=== PATIENT | female | born 1980 | race Caucasian/White ===

== ENCOUNTER 2016-03-07 | Outpatient (CLI) | payer MEDICAID | END 2016-03-07 11:00 | disposition home or self-care (01) ==

== ENCOUNTER 2016-03-07 09:41 | Outpatient (CLI) | payer MEDICAID | END 2016-03-07 09:42 | disposition home or self-care (01) | DX: Z13.9 Encounter for screening, unspecified (principal) ==

== ENCOUNTER 2016-05-21 08:38 | Emergency (ER) | payer MEDICAID ==
[2016-05-21] MEDS ORDERED: METOPROLOL 5 MG/5 ML VIAL IVP STA ×3 (08:52→10:12)
[2016-05-21] MEDS ORDERED: METOPROLOL 5 MG/5 ML VIAL IVP ONE ×3 (09:06→10:17)
[2016-05-21] MEDS ORDERED: SODIUM CHLORIDE 0.9% 500 ML IV ONE (09:11)
[2016-05-21] MEDS ORDERED: MIDAZOLAM 2 MG/2 ML VIAL IVP STA (10:44)
[2016-05-21] MEDS ORDERED: MIDAZOLAM 2 MG/2 ML VIAL ONE (10:44)
[2016-05-21] MEDS ORDERED: PROPOFOL 200 MG/20 ML VIAL IVP STA (10:45)
[2016-05-21] MEDS ORDERED: PROPOFOL 200 MG/20 ML VIAL IVP ONE (10:46)
== END 2016-05-21 12:20 | disposition home or self-care (01) ==
DX: I48.0 Paroxysmal atrial fibrillation (principal); I10 Essential (primary) hypertension

== ENCOUNTER 2016-07-21 17:34 | Emergency (ER) | payer MEDICAID ==
--- NOTE | 2016-07-21 18:07 | ED Physician Documentation ---
PD HPI CHEST PAIN - Stated complaint Stated Complaint: SOA/CP/L SHOULDER PX - Chief complaint Chief Complaint: Cardiac - History obtained from History obtained from: Patient - History of Present Illness Timing - onset: Other (36-year-old woman diagnosed with atrial fib/flutter in May, cardioverted at that time and started on beta blockers. Intermittently she has had the same sensation sense, especially if she misses a dose of metoprolol. She's had increased flutter today with some mild left shoulder pain and dizziness. It is not happening at the time of presentation to the emergency department. It has been intermittent. There is no shortness of breath. 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 - Present Medications Home Medications: Ambulatory Orders Medication Instructions Recorded Confirmed Lisinopril 10 mg PO DAILY 05/21/16 05/21/16 Metoprolol Tartrate 12.5 mg PO BID #14 tablet 05/21/16 Aspirin 07/21/16 - Allergies Allergies/Adverse Reactions: Allergies Allergy/AdvReac Type Severity Reaction Status Date / Time amoxicillin [Amoxicillin] Allergy Hives Verified 11/19/12 13:16 meperidine HCl * Allergy vomiting Verified 11/19/12 13:16 [From Demerol] Penicillins Allergy Hives Verified 11/19/12 13:16 - Social History Does the pt smoke?: No Smoking Status: Never smoker Does the pt drink ETOH?: No Does the pt have substance abuse?: No - POLST Patient has POLST: No PD ED PE NORMAL - Vitals Vital signs reviewed: Yes - General General: Alert and oriented X 3 - HEENT HEENT: Pharynx benign - Cardiac Cardiac: RRR, No murmur - Respiratory Respiratory: No respiratory distress, Clear bilaterally - Abdomen Abdomen: Soft, Non tender - Extremities Extremities: No edema, No calf tenderness / cord - Neuro Neuro: Alert and oriented X 3, Normal speech - Psych Psych: Normal mood, Normal affect Results - Vitals Vitals: Vital Signs - 24 hr 07/21/16 07/21/16 17:45 18:21 Temperature 36.6 C Heart Rate 62 63 Respiratory 14 16 Rate Blood Pressure 169/101 H 156/87 H O2 Saturation 98 97 Oxygen O2 Source Room air - EKG (time done) 1744 Rate: Rate (enter#) (64) Rhythm: NSR [place]: Normal QRS: LVH Ischemia: Normal ST segments Compare to prior EKG: Unchanged from prior EKG (after cardioversion, May) Computer interpretation: Agree with computer - Labs Labs: Laboratory Tests 07/21/16 07/21/16 18:25 18:25 Sodium 137 Potassium 3.6 Chloride 102 Carbon Dioxide 28 Anion Gap 7.0 BUN 9 Creatinine 0.7 Estimated GFR (MDRD) 94 Glucose 107 H Calcium 9.0 Magnesium 1.8 Total Bilirubin 0.6 AST 33 ALT 55 Alkaline Phosphatase 70 Total Protein 7.2 Albumin 4.3 Globulin 2.9 Albumin/Globulin Ratio 1.5 Lipase 30 Serum HCG, Qual NEGATIVE PD MEDICAL DECISION MAKING - ED course ED course: She is in normal sinus rhythm now but is likely having intermittent atrial fibrillation flutter. We'll watch her on the monitor for a while. She has an appointment with the development analyst in 3 days. Her thyroid was checked earlier this year normal. She was observed in the emergency department and had no further symptoms or arrhythmias. Her magnesium and potassium were low normal and both were orally supplemented. Departure - Departure Disposition: Home, Self Care Clinical Impression: Palpitations Condition: Good Record reviewed to determine appropriate education?: Yes Instructions: Atrial Fibrillation Dc Comments: Followup with the development analyst on Friday as previously arranged return if worse. Your blood pressure was elevated today on check in to the emergency department. This does not mean that you have hypertension, it is a common phenomenon to check into the emergency department and have elevated blood pressure. I recommend that you see your primary care physician within the week to have it rechecked when you're feeling better.
[2016-07-21 18:42] LABS: ALBUMIN/GLOBULIN RATIO 1.5 (1.0-2.2); BILIRUBIN,TOTAL 0.6 mg/dL (0.2-1.0); CREATININE 0.7 mg/dL (0.4-1.0); MAGNESIUM 1.8 mg/dL (1.7-2.8); POTASSIUM 3.6 mmol/L (3.5-5.0); TOTAL PROTEIN 7.2 g/dL (6.7-8.2)
[2016-07-21] MEDS ORDERED: MAGNESIUM OXIDE 400 MG TABLET PO STA (18:48)
[2016-07-21] MEDS ORDERED: POTASSIUM BICARB 25 MEQ TABLET PO STA (18:48)
[2016-07-21] MEDS ORDERED: MAGNESIUM OXIDE 400 MG TABLET PO ONE (18:53)
[2016-07-21] MEDS ORDERED: POTASSIUM BICARB 25 MEQ TABLET PO ONE (18:53)
[2016-07-21 19:09] VITALS: BP 167/91
== END 2016-07-21 19:05 | disposition home or self-care (01) ==
LOC: ED 17:34
DX: R00.2 Palpitations (principal); E83.42 Hypomagnesemia; E87.6 Hypokalemia; I10 Essential (primary) hypertension
CPT/HCPCS: 36415; 80053; 83690; 83735; 84703; 93005; 93010; 99283; 99284; A9270

== ENCOUNTER 2016-07-29 08:57 | Outpatient (CLI) | payer MEDICAID ==
[2016-07-29 13:36] LABS: BUN - BLOOD UREA NITROGEN 12 mg/dL (6-20); CALCIUM 8.8 mg/dL (8.5-10.3); CARBON DIOXIDE - CO2 25 mmol/L (21-32); CHLORIDE 105 mmol/L (101-111); CHOL/HDL RATIO 5.4 (<4.4); CHOLESTEROL 168 mg/dL; CREATININE 0.8 mg/dL (0.4-1.0); GFR - MDRD 81 (>89); GLUCOSE 115 mg/dL (70-100); HDL CHOLESTEROL 31 mg/dL; LDL/HDL RATIO 3.3 (<4.4); MAGNESIUM 1.9 mg/dL (1.7-2.8); POTASSIUM 4.1 mmol/L (3.5-5.0); SODIUM 139 mmol/L (135-145); TRIGLYCERIDES 173 mg/dL; VLDL CHOLESTEROL 35 mg/dL
[2016-08-03 09:28] LABS: ALDO/PRA RATIO 6.1 Ratio (0.9-28.9)
== END 2016-07-29 08:58 | disposition home or self-care (01) ==
LOC: LAB.N 08:57
PROVIDERS: ATTEND Internal Medicine Cardiovascular Disease
DX: I10 Essential (primary) hypertension (principal); R06.02 Shortness of breath; R06.83 Snoring; G47.33 Obstructive sleep apnea (adult) (pediatric)
CPT/HCPCS: 36415; 80048; 80061; 82088; 83735; 83835; 84244; 84443

== ENCOUNTER 2016-08-19 17:20 | Outpatient (CLI) | payer MEDICAID | END 2016-08-19 17:21 | disposition home or self-care (01) | LOC: LAB.R 17:20 | PROVIDERS: ATTEND Podiatrist | DX: L03.032 Cellulitis of left toe (principal) | CPT/HCPCS: 87070; 87077; 87205 ==

== ENCOUNTER 2016-08-28 13:56 | Outpatient (CLI) | payer MEDICAID | END 2016-08-28 13:57 | disposition home or self-care (01) | LOC: SC 13:56 | PROVIDERS: ATTEND Nurse Practitioner Family | DX: G47.10 Hypersomnia, unspecified (principal); G47.8 Other sleep disorders; R06.83 Snoring; R53.83 Other fatigue | CPT/HCPCS: 99212; 99214 ==

== ENCOUNTER 2016-09-02 07:34 | Outpatient (CLI) | payer MEDICAID | END 2016-09-02 07:35 | disposition home or self-care (01) | LOC: LAB.N 07:34 | PROVIDERS: ATTEND Nurse Practitioner Gerontology | DX: Z79.01 Long term (current) use of anticoagulants (principal) | CPT/HCPCS: 85610 ==

== ENCOUNTER 2016-09-04 07:52 | Outpatient (CLI) | payer MEDICAID | END 2016-09-04 07:53 | disposition home or self-care (01) | LOC: LAB.N 07:52 | PROVIDERS: ATTEND Nurse Practitioner Gerontology | DX: Z79.01 Long term (current) use of anticoagulants (principal) | CPT/HCPCS: 85610 ==

== ENCOUNTER 2016-09-06 08:00 | Outpatient (CLI) | payer MEDICAID | END 2016-09-06 08:01 | disposition home or self-care (01) | LOC: LAB.N 08:00 | PROVIDERS: ATTEND Nurse Practitioner Gerontology | DX: Z79.01 Long term (current) use of anticoagulants (principal) | CPT/HCPCS: 85610 ==

== ENCOUNTER 2016-09-10 08:00 | Outpatient (CLI) | payer MEDICAID | END 2016-09-10 08:01 | disposition home or self-care (01) | LOC: LAB.N 08:00 | PROVIDERS: ATTEND Nurse Practitioner Gerontology | DX: Z79.01 Long term (current) use of anticoagulants (principal) | CPT/HCPCS: 85610 ==

== ENCOUNTER 2016-09-12 14:22 | Outpatient (CLI) | payer MEDICAID | END 2016-09-12 14:23 | disposition home or self-care (01) | LOC: LAB.N 14:22 | PROVIDERS: ATTEND Nurse Practitioner Gerontology | DX: Z79.01 Long term (current) use of anticoagulants (principal) | CPT/HCPCS: 85610 ==

== ENCOUNTER 2016-09-16 10:10 | Outpatient (CLI) | payer MEDICAID | END 2016-09-16 10:11 | disposition home or self-care (01) | LOC: LAB.N 10:10 | PROVIDERS: ATTEND Nurse Practitioner Gerontology | DX: Z79.01 Long term (current) use of anticoagulants (principal) | CPT/HCPCS: 85610 ==

== ENCOUNTER 2016-09-23 08:00 | Outpatient (CLI) | payer MEDICAID | END 2016-09-23 08:01 | disposition home or self-care (01) | LOC: LAB.N 08:00 | PROVIDERS: ATTEND Nurse Practitioner Gerontology | DX: Z79.01 Long term (current) use of anticoagulants (principal) | CPT/HCPCS: 85610 ==

== ENCOUNTER 2016-09-27 21:26 | Outpatient (CLI) | payer MEDICAID | END 2016-09-27 21:27 | disposition home or self-care (01) | LOC: SC 21:26 | PROVIDERS: ATTEND Internal Medicine Pulmonary Disease | DX: G47.33 Obstructive sleep apnea (adult) (pediatric) (principal) | CPT/HCPCS: 95810 ==

== ENCOUNTER 2016-10-01 09:19 | Outpatient (CLI) | payer MEDICAID | END 2016-10-01 09:20 | disposition home or self-care (01) | LOC: LAB.N 09:19 | PROVIDERS: ATTEND Nurse Practitioner Gerontology | DX: Z79.01 Long term (current) use of anticoagulants (principal) | CPT/HCPCS: 85610 ==

== ENCOUNTER 2016-10-08 08:00 | Outpatient (CLI) | payer MEDICAID | END 2016-10-08 08:01 | disposition home or self-care (01) | LOC: LAB.N 08:00 | PROVIDERS: ATTEND Nurse Practitioner Gerontology | DX: Z79.01 Long term (current) use of anticoagulants (principal) | CPT/HCPCS: 85610 ==

== ENCOUNTER 2016-10-22 07:44 | Outpatient (CLI) | payer MEDICAID | END 2016-10-22 07:45 | disposition home or self-care (01) | LOC: LAB.N 07:44 | PROVIDERS: ATTEND Nurse Practitioner Gerontology | DX: Z79.01 Long term (current) use of anticoagulants (principal) | CPT/HCPCS: 85610 ==

== ENCOUNTER 2016-10-23 08:42 | Outpatient (CLI) | payer MEDICAID | END 2016-10-23 08:43 | disposition home or self-care (01) | LOC: SC 08:42 | PROVIDERS: ATTEND Nurse Practitioner Family | DX: G47.33 Obstructive sleep apnea (adult) (pediatric) (principal) | CPT/HCPCS: 99212; 99214 ==

== ENCOUNTER 2016-11-05 08:00 | Outpatient (CLI) | payer MEDICAID | END 2016-11-05 08:01 | disposition home or self-care (01) | LOC: LAB.N 08:00 | PROVIDERS: ATTEND Nurse Practitioner Gerontology | DX: Z79.01 Long term (current) use of anticoagulants (principal) | CPT/HCPCS: 85610 ==

== ENCOUNTER 2016-12-02 13:09 | Outpatient (CLI) | payer MEDICAID | END 2016-12-02 13:10 | disposition home or self-care (01) | LOC: LAB.N 13:09 | PROVIDERS: ATTEND Nurse Practitioner Gerontology | DX: Z79.01 Long term (current) use of anticoagulants (principal) | CPT/HCPCS: 85610 ==

== ENCOUNTER 2016-12-02 13:14 | Outpatient (CLI) | payer MEDICAID | END 2016-12-02 13:15 | disposition home or self-care (01) | LOC: SC 13:14 | PROVIDERS: ATTEND Nurse Practitioner Family | DX: G47.33 Obstructive sleep apnea (adult) (pediatric) (principal) | CPT/HCPCS: 99212; 99214 ==

== ENCOUNTER 2017-01-03 08:00 | Outpatient (CLI) | payer MEDICAID | END 2017-01-03 08:01 | disposition home or self-care (01) | LOC: LAB.N 08:00 | PROVIDERS: ATTEND Nurse Practitioner Gerontology | DX: Z79.01 Long term (current) use of anticoagulants (principal) | CPT/HCPCS: 85610 ==

== ENCOUNTER 2017-02-07 14:49 | Outpatient (CLI) | payer MEDICAID | END 2017-02-07 14:50 | disposition home or self-care (01) | LOC: LAB.N 14:49 | PROVIDERS: ATTEND Nurse Practitioner Gerontology | DX: Z79.01 Long term (current) use of anticoagulants (principal) | CPT/HCPCS: 85610 ==

== ENCOUNTER 2017-03-05 14:57 | Outpatient (CLI) | payer MEDICAID | END 2017-03-05 14:58 | disposition home or self-care (01) | LOC: SC 14:57 | PROVIDERS: ATTEND Nurse Practitioner Family | DX: G47.33 Obstructive sleep apnea (adult) (pediatric) (principal); G47.00 Insomnia, unspecified | CPT/HCPCS: 99212; 99214 ==

== ENCOUNTER 2017-03-05 21:00 | Outpatient (CLI) | payer MEDICAID ==
--- NOTE | 2017-03-06 09:18 | XRAY Report ---
DATE OF SERVICE: 03/05/2017 THREE-VIEW LEFT INDEX FINGER: 03/05/2017 CLINICAL INDICATION: Pain. FINDINGS: AP, lateral, and oblique views of the left index finger demonstrate no evidence of acute fracture. Soft tissue swelling is present. No radiopaque foreign body is seen in the soft tissues. IMPRESSION: Soft tissue swelling, but no evidence of acute fracture. TD: 03/06/2017 10:17
== END 2017-03-05 21:01 | disposition home or self-care (01) ==
LOC: DI 21:00
PROVIDERS: ATTEND Family Medicine
DX: M79.645 Pain in left finger(s) (principal); R22.32 Localized swelling, mass and lump, left upper limb
CPT/HCPCS: 73140

== ENCOUNTER 2017-03-14 09:06 | Emergency (ER) | payer MEDICAID ==
[2017-03-14] MEDS ORDERED: ONDANSETRON 4 MG/2 ML VIAL IVP STA (10:24)
[2017-03-14] MEDS ORDERED: KETOROLAC 60 MG/2 ML VIAL IVP STA (10:24)
[2017-03-14] MEDS ORDERED: KETOROLAC 60 MG/2 ML VIAL IM STA (10:52)
[2017-03-14 11:00] LABS: BILIRUBIN,URINE NEGATIVE (NEGATIVE); GLUCOSE, URINE (UA) NEGATIVE (NEGATIVE); KETONES,URINE (UA) NEGATIVE (NEGATIVE); LEUKOCYTE ESTERASE, URINE NEGATIVE (NEGATIVE); NITRITE,URINE NEGATIVE (NEGATIVE); OCCULT BLOOD,URINE MODERATE (NEGATIVE); PROTEIN,URINE NEGATIVE (NEGATIVE); UROBILINOGEN,URINE 0.2 (NORMAL) E.U./dL (NORMAL)
[2017-03-14 11:03] LABS: CLARITY,URINE CLEAR (CLEAR)
[2017-03-14 11:21] LABS: RBC,URINE 0-5 /HPF (0-5)
[2017-03-14 11:22] LABS: BACTERIA,URINE Moderate /HPF (None Seen); MUCUS,URINE Moderate Strands; SQUAMOUS EPITHELIAL CELL,UR MOD Squamous (<= Few); YEAST,URINE PRESENT
--- NOTE | 2017-03-14 12:35 | Ultrasound Report ---
DATE OF SERVICE: 03/14/2017 PELVIC ULTRASOUND: 03/14/2017 CLINICAL INDICATION: Left pelvic pain. TECHNIQUE: Transabdominal pelvic ultrasound performed for global evaluation. Transvaginal pelvic ultrasound performed for detailed evaluation. Real-time scanning performed and static images obtained. FINDINGS: The uterus is anteverted, measuring 10.3 x 5.5 x 5.0 cm. The endometrial echo complex measures 13 mm. No focal myometrial lesion is seen. The right ovary is surgically absent. Trace free fluid is present. The left ovary measures 5.7 x 4.4 x 3.4 cm, and demonstrates a 4.3 x 3.4 x 2.2 cm cyst. Normal flow was seen to the surrounding ovarian parenchyma. IMPRESSION: A 4.3 CM LEFT OVARIAN CYST. NO EVIDENCE OF OVARIAN TORSION AT THIS TIME. POSTOPERATIVE CHANGES OF PREVIOUS RIGHT OOPHORECTOMY. TD: 03/14/2017 13:35
[2017-03-14 12:43] LABS: BASOPHILS # (AUTO) 0.1 10^3/uL (0.0-0.1); BASOPHILS % (AUTO) 0.6 %; EOSINOPHILS # (AUTO) 0.1 10^3/uL (0.0-0.7); EOSINOPHILS % (AUTO) 1.6 %; LYMPHOCYTES # (AUTO) 2.5 10^3/uL (1.5-3.5); LYMPHOCYTES % (AUTO) 30.3 %; MEAN CORPUSCULAR HEMOGLOBIN 28.1 pg (27.0-31.0); MEAN CORPUSCULAR HGB CONC 34.5 g/dL (32.0-36.0); MEAN CORPUSCULAR VOLUME 81.5 fL (81.0-99.0); MONOCYTES # (AUTO) 0.5 10^3/uL (0.0-1.0); MONOCYTES % (AUTO) 5.5 %; NEUTROPHILS # (AUTO) 5.1 10^3/uL (1.5-6.6); PLT - PLATELET COUNT 221 10^3/uL (130-450); RED BLOOD COUNT 4.97 10^6/uL (4.20-5.40); RED CELL DISTRIBUTION WIDTH 13.3 % (12.0-15.0); WHITE BLOOD COUNT 8.2 x10^3/uL (4.8-10.8)
--- NOTE | 2017-03-14 12:50 | ED Physician Documentation ---
PD HPI ABD PAIN - Stated complaint Stated Complaint: ABD PAIN - Chief complaint Chief Complaint: Abd Pain - History obtained from History obtained from: Patient - History of Present Illness Timing - onset: How many days ago (3) Timing - duration: Days (3) Timing - details: Still present Quality: Sharp Location: LLQ Worsened by: Moving (walking), Palpation Associated symptoms: Nausea (mild). No: Fever, Vomiting, Dysuria Similar symptoms before: Diagnosis (History of polycystic ovarian syndrome.) - Additional information Additional information: The patient is a 36-year-old female who presents with left lower quadrant/ pelvic pain that started 3 days ago and has persisted since that time, becoming worse today. She describes it as a sharp pain that is worse with walking. She has a history of polycystic ovarian syndrome, with similar symptoms in the past. The last time it was this bad was about 5 years ago. She is status post right oophorectomy. On further review of systems she denies fever, vomiting, or dysuria. Her last menstrual period was in July 2016. She took a home test which was negative. Review of Systems Constitutional: denies: Fever Nose: denies: Congestion Throat: denies: Sore throat Cardiac: denies: Chest pain / pressure Respiratory: denies: Dyspnea, Cough GI: reports: Abdominal Pain, Nausea (Mild). denies: Vomiting, Diarrhea : reports: LMP (July 2016.). 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 - Present Medications Home Medications: Ambulatory Orders Medication Instructions Recorded Confirmed Metoprolol Tartrate 12.5 mg PO BID #14 tablet 05/21/16 Fluconazole [Diflucan] 150 mg PO ONCE #1 tablet 03/14/17 HYDROcod/ACETAM 5/325 [Vicodin 1 - 2 ea PO Q6H PRN #15 tablet 03/14/17 5/325] Warfarin Sodium [Coumadin] 7.5 03/14/17 - Allergies Allergies/Adverse Reactions: Allergies Allergy/AdvReac Type Severity Reaction Status Date / Time amoxicillin [Amoxicillin] Allergy Hives Verified 03/14/17 09:21 meperidine HCl * Allergy vomiting Verified 03/14/17 09:21 [From Demerol] Penicillins Allergy Hives Verified 03/14/17 09:21 - Social History Does the pt smoke?: No Smoking Status: Never smoker Does the pt drink ETOH?: No Does the pt have substance abuse?: No - Immunizations Immunizations are current?: Yes - POLST Patient has POLST: No PD ED PE NORMAL - Vitals Vital signs reviewed: Yes (Hypertension.) - General General: Alert and oriented X 3, Well developed/nourished, Other (Obese.) - HEENT HEENT: Atraumatic, Pharynx benign - Neck Neck: No adenopathy, No JVD - Cardiac Cardiac: RRR, No murmur - Respiratory Respiratory: No respiratory distress, Clear bilaterally - Abdomen Abdomen: Soft, Other (Tenderness to palpation in the left lower quadrant/ adnexal region, without rebound or guarding.) - Back Back: No CVA TTP - Derm Derm: No rash - Extremities Extremities: No edema, No calf tenderness / cord - Neuro Neuro: Alert and oriented X 3, No motor deficit, Normal speech Results - Vitals Vitals: Vital Signs - 24 hr 03/14/17 13:12 Temperature 36.6 C Heart Rate 60 Respiratory 15 Rate Blood Pressure 154/91 H O2 Saturation 99 Oxygen O2 Source Room air - Labs Labs: Laboratory Tests 03/14/17 03/14/17 03/14/17 09:45 12:30 12:30 WBC 8.2 RBC 4.97 Hgb 14.0 Hct 40.5 MCV 81.5 MCH 28.1 MCHC 34.5 RDW 13.3 Plt Count 221 MPV 8.0 Neut # 5.1 Lymph # 2.5 [place] # 0.5 Eos # 0.1 Baso # 0.1 Absolute Nucleated RBC 0.01 Nucleated RBC % 0.1 Sodium 135 Potassium 3.9 Chloride 101 Carbon Dioxide 25 Anion Gap 9.0 BUN 9 Creatinine 0.7 Estimated GFR (MDRD) 94 Glucose 100 Calcium 8.6 Total Bilirubin 1.0 AST 28 ALT 40 Alkaline Phosphatase 75 Total Protein 7.2 Albumin 4.0 Globulin 3.2 Albumin/Globulin Ratio 1.3 Lipase 24 Urine Color DARK YELLOW Urine Clarity CLEAR Urine pH 6.0 Ur Specific [place] >=1.030 H Urine Protein NEGATIVE Urine Glucose (UA) NEGATIVE Urine Ketones NEGATIVE Urine Occult Blood MODERATE H Urine Nitrite NEGATIVE Urine Bilirubin NEGATIVE Urine Urobilinogen 0.2 (NORMAL) Ur Leukocyte Esterase NEGATIVE Urine RBC 0-5 Urine WBC 0-3 Ur Squamous Epith Cells MOD Squamous H Urine Bacteria Moderate H Urine Mucus Moderate Strands Urine Yeast PRESENT Ur Microscopic Review INDICATED Urine Culture Comments NOT INDICATED - Rads (name of study) pelvic u/s Radiology: Prelim report reviewed, EMP read contemporaneously, See rad report ( 4.3 cm left ovarian cyst. No torsion. Normal uterus. Trace free fluid.) PD MEDICAL DECISION MAKING - ED course Complexity details: reviewed old records, reviewed results, re-evaluated patient , considered differential, d/w patient, d/w family ED course: The patient's presentation is consistent with left ovarian cyst, which is confirmed by pelvic ultrasound. Clinically her symptoms do not represent diverticulitis, pyelonephritis, or ovarian torsion. test is negative , and CBC and chemistry panel are normal. Urinalysis reveals yeast forms. Treatment in the emergency department included administration of ketorolac 60 mg IM. The patient's symptoms improved, although did not resolve. She is being discharged with prescriptions for Diflucan and for Vicodin, 15 tablets. I discussed with her and her female portrait photographer the results of her workup, symptomatic treatment and outpatient follow-up, as well as potentially worrisome signs or symptoms that should prompt reevaluation is needed emergency department. Departure - Departure Disposition: 01 Home, Self Care Clinical Impression: Left ovarian cyst Condition: Stable Instructions: ED Cyst Ovarian Follow-Up: Ingrid Torres ARNP [Primary Care Provider] - Prescriptions: Fluconazole [Diflucan] 150 mg PO ONCE #1 tablet HYDROcod/ACETAM 5/325 [Vicodin 5/325] 1 - 2 ea PO Q6H PRN #15 tablet PRN Reason: Pain Comments: Continue using ibuprofen, up to 800 mg 3 times daily, for its anti-inflammatory effect. You can use Vicodin as prescribed if needed for pain. Follow up with your primary physician within 2 weeks. Call to schedule appointment. Return to the emergency department if you develop increasing abdominal pain, fever, persistent vomiting, or otherwise worsening symptoms. Discharge Date/Time: 03/14/17 13:12
[2017-03-14 12:55] LABS: ALBUMIN/GLOBULIN RATIO 1.3 (1.0-2.2); CALCIUM 8.6 mg/dL (8.5-10.3); CREATININE 0.7 mg/dL (0.4-1.0); TOTAL PROTEIN 7.2 g/dL (6.7-8.2)
[2017-03-14 13:15] VITALS: BP 154/91
== END 2017-03-14 13:12 | disposition home or self-care (01) ==
LOC: ED 09:06
DX: N83.202 Unspecified ovarian cyst, left side (principal); E28.2 Polycystic ovarian syndrome; I10 Essential (primary) hypertension
CPT/HCPCS: 36415; 76830; 76856; 80053; 81001; 81003; 83690; 85025; 87086; 96372; 99283

== ENCOUNTER 2017-03-19 08:57 | Outpatient (CLI) | payer MEDICAID | END 2017-03-19 08:58 | disposition home or self-care (01) | LOC: LAB.N 08:57 | PROVIDERS: ATTEND Nurse Practitioner Gerontology | DX: Z79.01 Long term (current) use of anticoagulants (principal) | CPT/HCPCS: 85610 ==

== ENCOUNTER 2017-03-24 18:39 | Emergency (ER) | payer MEDICAID ==
--- NOTE | 2017-03-24 19:27 | XRAY Report ---
EXAM: RIGHT FOOT RADIOGRAPHY EXAM DATE: 03/24/2017 07:11 PM. CLINICAL HISTORY: Injury . COMPARISON: None. TECHNIQUE: 3 views. FINDINGS: Bones: Normal. No fractures or bone lesions. Joints: Normal. No subluxations. Soft Tissues: Normal. No soft tissue swelling. IMPRESSION: Normal foot radiography. [facility] Referring Provider Line: [phone] SITE ID: [id number]
[2017-03-24 19:45] VITALS: BP 140/94
--- NOTE | 2017-03-24 21:05 | ED Physician Documentation ---
PD HPI LOWER EXT INJURY - Stated complaint Stated Complaint: RT FOOT INJURY - Chief complaint Chief Complaint: Ext Problem - History obtained from History obtained from: Patient - History of Present Illness PD HPI LOW EXT INJURY LOCATION: Right, Foot Type of injury: Blunt / blow Where injury occurred: Other Timing - onset: How many weeks ago (1) Timing - details: Abrupt onset Improved by: Immobilization Worsened by: Moving Associated symptoms: Swelling, Discolored Contributing factors: Anticoagulated Similar symptoms before: No diagnosis Recently seen: Not recently seen - Additional information Additional information: patient is a 36 year old female on coumadin for a fib who is presenting to the emergency department for swollen foot. patient states that she hit it on a shopping cart about a week ago but it is still swollen. patient states that she works on her feet all day and has not been able to elevate or ice her foot. Review of Systems Constitutional: denies: Fever, Chills Eyes: reports: Reviewed and negative Ears: reports: Reviewed and negative Nose: reports: Reviewed and negative Throat: reports: Reviewed and negative Cardiac: denies: Chest pain / pressure Respiratory: reports: Reviewed and negative GI: denies: Nausea, Vomiting : reports: Reviewed and negative Skin: reports: Rash. 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 Psych: None Musculoskeletal: None Derm: None Other Past Medical History: PCOS - Past Surgical History Past Surgical History: Yes General: Cholecystectomy, 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 - Present Medications Home Medications: Ambulatory Orders Medication Instructions Recorded Confirmed Warfarin Sodium [Coumadin] 7.5 03/14/17 Metoprolol Tartrate 25 mg PO BID 03/24/17 03/24/17 - Allergies Allergies/Adverse Reactions: Allergies Allergy/AdvReac Type Severity Reaction Status Date / Time amoxicillin [Amoxicillin] Allergy Hives Verified 03/14/17 09:21 meperidine HCl * Allergy vomiting Verified 03/14/17 09:21 [From Demerol] Penicillins Allergy Hives Verified 03/24/17 18:51 - Social History Does the pt smoke?: No Smoking Status: Never smoker Does the pt drink ETOH?: No Does the pt have substance abuse?: No - Immunizations Immunizations are current?: Yes - POLST Patient has POLST: No PD ED PE NORMAL - Vitals Vital signs reviewed: Yes - General General: Alert and oriented X 3, No acute distress - HEENT HEENT: Atraumatic, PERRL - Respiratory Respiratory: No respiratory distress - Abdomen Abdomen: Soft - Neuro Neuro: Alert and oriented X 3, No motor deficit, No sensory deficit, Normal speech Eye Opening: Spontaneous Motor: Obeys Commands Verbal: Oriented GCS Score: 15 PD ED PE EXPANDED - Extremities Extremities: Right foot (tenderness and swelling of right foot), Pedal Pulses Present, Motor intact, Sensory intact, Vascular intact, Tendon intact Results - Vitals Vitals: Vital Signs - 24 hr 03/24/17 03/24/17 18:49 19:45 Temperature 36.4 C L 37.0 C Heart Rate 67 68 Respiratory 20 18 Rate Blood Pressure 160/93 H 140/94 H O2 Saturation 99 97 Oxygen O2 Source Room air - Rads (name of study) right foot x-ray Radiology: Final report received (no acute abnormality) PD MEDICAL DECISION MAKING - ED course Complexity details: reviewed old records, reviewed results, re-evaluated patient , considered differential, d/w patient, d/w family ED course: Patient was seen and examined at bedside. Patient had been sent for imaging and was negative. Patient was made aware of the findings. Patient was placed in an yang bandage by me. Patient required no further work up and was stable for discharge with outpatient follow up. Departure - Departure Disposition: 01 Home, Self Care Clinical Impression: Contusion of foot, right Instructions: ED Contusion Lower Ext Follow-Up: Ingrid Torres ARNP [Primary Care Provider] - As Needed Comments: Your diagnostics today were within normal limits. there is no acute fracture or dislocation. It is important that you keep your foot elevated throughout the day, and at night you should put it up on extra pillows. If you are unable to elevate your foot during the day you should wear yang bandage or compression stocking. You can take tylenol as needed for pain.
== END 2017-03-24 21:21 | disposition home or self-care (01) ==
LOC: ED 18:39
DX: S90.31XA Contusion of right foot, initial encounter (principal); W22.8XXA Striking against or struck by other objects, initial encounter; Y92.59 Other trade areas as the place of occurrence of the external cause; I10 Essential (primary) hypertension; I48.91 Unspecified atrial fibrillation; Z79.01 Long term (current) use of anticoagulants; E28.2 Polycystic ovarian syndrome
CPT/HCPCS: 99282; 99283

== ENCOUNTER 2017-04-10 14:00 | Outpatient (CLI) | payer MEDICAID | END 2017-04-10 14:01 | disposition home or self-care (01) | LOC: LAB.N 14:00 | PROVIDERS: ATTEND Nurse Practitioner Gerontology | DX: Z79.01 Long term (current) use of anticoagulants (principal) | CPT/HCPCS: 85610 ==

== ENCOUNTER 2017-04-25 08:00 | Outpatient (CLI) | payer MEDICAID | END 2017-04-25 08:01 | disposition home or self-care (01) | LOC: LAB.N 08:00 | PROVIDERS: ATTEND Nurse Practitioner Gerontology | DX: Z79.01 Long term (current) use of anticoagulants (principal) | CPT/HCPCS: 85610 ==

== ENCOUNTER 2017-05-08 15:37 | Outpatient (CLI) | payer MEDICAID | END 2017-05-08 15:38 | disposition home or self-care (01) | LOC: LAB.N 15:37 | PROVIDERS: ATTEND Nurse Practitioner Gerontology | DX: Z79.01 Long term (current) use of anticoagulants (principal) | CPT/HCPCS: 85610 ==

== ENCOUNTER 2017-06-09 10:45 | Outpatient (CLI) | payer MEDICAID ==
[2017-06-09 13:36] LABS: HB2 TOTAL 13.4 g/dL; HEMOGLOBIN A1C 0.53 g/dL; HEMOGLOBIN A1C % 5.8 % (4.6-6.2)
== END 2017-06-09 10:46 | disposition home or self-care (01) ==
LOC: LAB.N 10:45
PROVIDERS: ATTEND Nurse Practitioner Gerontology
DX: I10 Essential (primary) hypertension (principal); E66.01 Morbid (severe) obesity due to excess calories; E28.2 Polycystic ovarian syndrome; Z79.01 Long term (current) use of anticoagulants
CPT/HCPCS: 36415; 83036; 85610

== ENCOUNTER 2017-06-22 19:01 | Emergency (ER) | payer MEDICAID ==
[2017-06-22] MEDS ORDERED: oxyCOD/ACETAMIN 5 MG/325 MG TABLET PO STA (20:35)
[2017-06-22] MEDS ORDERED: KETOROLAC 60 MG/2 ML VIAL IM STA (20:36)
[2017-06-22 20:42] LABS: BILIRUBIN,URINE NEGATIVE (NEGATIVE); CLARITY,URINE CLEAR (CLEAR); GLUCOSE, URINE (UA) NEGATIVE (NEGATIVE); KETONES,URINE (UA) NEGATIVE (NEGATIVE); LEUKOCYTE ESTERASE, URINE NEGATIVE (NEGATIVE); NITRITE,URINE NEGATIVE (NEGATIVE); OCCULT BLOOD,URINE SMALL (NEGATIVE); PROTEIN,URINE NEGATIVE (NEGATIVE); UROBILINOGEN,URINE 0.2 (NORMAL) E.U./dL (NORMAL)
[2017-06-22 20:43] LABS: HCG UR QUAL NEGATIVE
[2017-06-22 20:53] LABS: AMORPHOUS SEDIMENT,UR Few /LPF; BACTERIA,URINE Moderate /HPF (None Seen); RBC,URINE 0-5 /HPF (0-5); SQUAMOUS EPITHELIAL CELL,UR MOD Squamous (<= Few)
--- NOTE | 2017-06-22 21:19 | ED Physician Documentation ---
PD HPI ABD PAIN - Stated complaint Stated Complaint: LOWER ABD PX - Chief complaint Chief Complaint: Abd Pain - History obtained from History obtained from: Patient - History of Present Illness Timing - onset: How many weeks ago (1) Timing - details: Gradual onset Quality: Sharp Location: LLQ Worsened by: Moving Associated symptoms: Nausea. No: Fever, Vomiting, Dysuria Similar symptoms before: Diagnosis (History of similar symptoms with ovarian cysts.) - Treatment prior to arrival Treatment prior to arrival: She has taken Tylenol without relief. - Additional information Additional information: The patient is a 37-year-old female with history of polycystic ovarian syndrome , who presents with left lower quadrant/adnexal pain that started about 1 week ago, but became worse today. It feels similar to when she has had ovarian cysts in the past. Review of her medical record reveals similar presentation 5 months ago, and pelvic ultrasound revealed a left ovarian cyst at that time. She reports nausea, without vomiting. She denies fever or dysuria. Her last normal menstrual period was 7 weeks ago. Further past medical history is significant for atrial fibrillation, for which she is on Coumadin. Review of Systems Constitutional: denies: Fever Nose: denies: Congestion Cardiac: denies: Chest pain / pressure Respiratory: denies: Dyspnea, Cough GI: reports: Abdominal Pain, Nausea. denies: Vomiting, Diarrhea : reports: LMP (7 weeks ago.). 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 - Present Medications Home Medications: Ambulatory Orders Medication Instructions Recorded Confirmed Warfarin Sodium [Coumadin] 7.5 03/14/17 Metoprolol Tartrate 25 mg PO BID 03/24/17 03/24/17 HYDROcod/ACETAM 5/325 [[place] 5/325] 1 - 2 ea PO Q6H PRN #15 tablet 06/22/17 - Allergies Allergies/Adverse Reactions: Allergies Allergy/AdvReac Type Severity Reaction Status Date / Time amoxicillin [Amoxicillin] Allergy Hives Verified 01/26/18 09:21 meperidine HCl * Allergy vomiting Verified 03/14/17 09:21 [From Demerol] Penicillins Allergy Hives Verified 03/24/17 18:51 - Social History Does the pt smoke?: No Smoking Status: Never smoker Does the pt drink ETOH?: No Does the pt have substance abuse?: No - Immunizations Immunizations are current?: Yes - POLST Patient has POLST: No PD ED PE NORMAL - Vitals Vital signs reviewed: Yes (hypertensive) - General General: Alert and oriented X 3, Other (Obese) - HEENT HEENT: Atraumatic, Moist mucous membranes - Neck Neck: No adenopathy, No JVD - Cardiac Cardiac: RRR, No murmur - Respiratory Respiratory: No respiratory distress, Clear bilaterally - Abdomen Abdomen: Soft, Other (Left adnexal tenderness to palpation.) - Back Back: No CVA TTP - Derm Derm: No rash - Extremities Extremities: No calf tenderness / cord - Neuro Neuro: Alert and oriented X 3, Normal speech Results - Vitals Vitals: Vital Signs - 24 hr 06/22/17 06/22/17 06/22/17 19:07 19:54 21:22 Temperature 36.4 C L 36.7 C Heart Rate 90 64 66 Respiratory 16 16 17 Rate Blood Pressure 163/83 H 115/60 142/87 H O2 Saturation 98 98 98 Oxygen O2 Source Room air - Labs Labs: Laboratory Tests 06/22/17 20:30 Urine Color YELLOW Urine Clarity CLEAR Urine pH 6.0 Ur Specific [place] 1.025 Urine Protein NEGATIVE Urine Glucose (UA) NEGATIVE Urine Ketones NEGATIVE Urine Occult Blood SMALL H Urine Nitrite NEGATIVE Urine Bilirubin NEGATIVE Urine Urobilinogen 0.2 (NORMAL) Ur Leukocyte Esterase NEGATIVE Urine RBC 0-5 Urine WBC 0-3 Ur Squamous Epith Cells MOD Squamous H Amorphous Sediment Few Urine Bacteria Moderate H Ur Microscopic Review INDICATED Urine Culture Comments NOT INDICATED Urine HCG, Qual NEGATIVE PD MEDICAL DECISION MAKING - ED course Complexity details: reviewed old records, reviewed results, re-evaluated patient , considered differential, d/w patient, d/w family ED course: The patient's presentation is most consistent with left ovarian cyst. Urinalysis is negative, and test is negative. Her presentation does not suggest diverticulitis or ovarian torsion. Treatment in the emergency department included administration of ketorolac 60 mg IM, and Percocet 1 tablet orally. Her pain improved with the above treatment. She is being discharged with prescription for Vicodin, 15 tablets. I discussed with her and her the expected course of illness, symptomatic treatment and outpatient follow-up, as well as potentially worrisome signs or symptoms that should prompt reevaluation in the emergency department. Departure - Departure Disposition: 01 Home, Self Care Clinical Impression: Left ovarian cyst Condition: Stable Instructions: ED Cyst Ovarian Follow-Up: Ingrid Torres ARNP [Primary Care Provider] - Prescriptions: HYDROcod/ACETAM 5/325 [[place] 5/325] 1 - 2 ea PO Q6H PRN #15 tablet PRN Reason: Pain Comments: You can use ibuprofen, up to 800 mg 3 times daily for its anti-inflammatory effect. He can use Vicodin as prescribed if needed for pain. Follow up with your primary physician within 1-2 weeks. Call to schedule an appointment. Return to the emergency department if you develop increasing pain, lightheadedness, persistent vomiting, or otherwise worsening symptoms. Discharge Date/Time: 06/22/17 21:23
[2017-06-22 21:23] VITALS: BP 142/87
== END 2017-06-22 21:23 | disposition home or self-care (01) ==
LOC: ED 19:01
DX: N83.202 Unspecified ovarian cyst, left side (principal); I10 Essential (primary) hypertension; I48.91 Unspecified atrial fibrillation; Z79.01 Long term (current) use of anticoagulants
CPT/HCPCS: 81001; 81025; 96372; 99283; A9270; 81003; 87086

== ENCOUNTER 2017-07-11 14:08 | Outpatient (CLI) | payer MEDICAID | END 2017-07-11 14:09 | disposition home or self-care (01) | LOC: LAB.N 14:08 | PROVIDERS: ATTEND Nurse Practitioner Gerontology | DX: Z79.01 Long term (current) use of anticoagulants (principal) | CPT/HCPCS: 85610 ==

== ENCOUNTER 2017-07-22 08:00 | Outpatient (CLI) | payer MEDICAID | END 2017-07-22 08:01 | disposition home or self-care (01) | LOC: LAB.N 08:00 | PROVIDERS: ATTEND Nurse Practitioner Gerontology | DX: Z79.01 Long term (current) use of anticoagulants (principal) | CPT/HCPCS: 85610 ==

== ENCOUNTER 2017-08-25 10:37 | Outpatient (CLI) | payer MEDICAID | END 2017-08-25 10:38 | disposition home or self-care (01) | LOC: LAB.N 10:37 | PROVIDERS: ATTEND Nurse Practitioner Gerontology | DX: Z79.01 Long term (current) use of anticoagulants (principal) | CPT/HCPCS: 85610 ==

== ENCOUNTER 2017-09-19 14:26 | Outpatient (CLI) | payer MEDICAID | END 2017-09-19 14:27 | disposition home or self-care (01) | LOC: LAB.N 14:26 | PROVIDERS: ATTEND Nurse Practitioner Gerontology | DX: Z79.01 Long term (current) use of anticoagulants (principal) | CPT/HCPCS: 85610 ==

== ENCOUNTER 2017-09-24 08:00 | Outpatient (CLI) | payer MEDICAID | END 2017-09-24 08:01 | disposition home or self-care (01) | LOC: LAB.N 08:00 | PROVIDERS: ATTEND Nurse Practitioner Gerontology | DX: Z79.01 Long term (current) use of anticoagulants (principal) | CPT/HCPCS: 85610 ==

== ENCOUNTER 2017-09-24 10:14 | Outpatient (CLI) | payer MEDICAID | END 2017-09-24 10:15 | disposition home or self-care (01) | LOC: SC 10:14 | PROVIDERS: ATTEND Nurse Practitioner Family | DX: G47.33 Obstructive sleep apnea (adult) (pediatric) (principal) | CPT/HCPCS: 99212; 99214 ==

== ENCOUNTER 2017-11-03 08:30 | Outpatient (CLI) | payer MEDICAID | END 2017-11-03 08:31 | disposition home or self-care (01) | LOC: LAB.N 08:30 | PROVIDERS: ATTEND Nurse Practitioner Gerontology | DX: Z79.01 Long term (current) use of anticoagulants (principal) | CPT/HCPCS: 85610 ==

== ENCOUNTER 2017-11-10 08:42 | Outpatient (CLI) | payer MEDICAID | END 2017-11-10 08:43 | disposition home or self-care (01) | LOC: LAB.N 08:42 | PROVIDERS: ATTEND Nurse Practitioner Gerontology | DX: Z79.01 Long term (current) use of anticoagulants (principal) | CPT/HCPCS: 85610 ==

== ENCOUNTER 2017-12-22 13:54 | Outpatient (CLI) | payer MEDICAID | END 2017-12-22 23:59 | LOC: LAB.N 13:54 | PROVIDERS: ATTEND Nurse Practitioner Gerontology | DX: Z79.01 Long term (current) use of anticoagulants (principal) | CPT/HCPCS: 85610 ==

== ENCOUNTER 2019-06-10 10:42 | Outpatient (CLI) | payer OTHER ==
--- NOTE | 2019-06-10 17:07 | MRI Report ---
Reason: ACUTE TEAR MEDIAL MENISCUS Procedure Date: 06/10/2019 Accession Number: [id number] / [id number] Procedure: MRI - Knee LT W/O CPT Code: Final Report FULL RESULT: EXAM: LEFT KNEE MRI WITHOUT CONTRAST EXAM DATE: 06/10/2019 12:22 PM. CLINICAL HISTORY: Left knee pain. Evaluate for medial meniscus tear. COMPARISON: None. TECHNIQUE: Multiplanar, multisequence T1-weighted and fluid-sensitive sequences of the knee without contrast. Other: None. FINDINGS: Limited evaluation of the knee due to patient body habitus and inability to use standard knee coils. Bones: No fracture. Foci of subchondral marrow edema at the lateral patellar facet. Otherwise normal marrow signal. Articular Cartilage: Broad area of deep partial-thickness cartilage loss at the superior margin of the lateral patellar facet with underlying focus of subchondral marrow edema. Trochlear cartilage is grossly intact. Probable broad areas of deep partial-thickness cartilage loss at the central weightbearing medial femoral condyle with a small focus of subchondral marrow edema. Lateral compartment articular cartilage is grossly intact. Medial Meniscus: Severely limited evaluation. Probable fraying of the posterior horn without definite tear. Lateral Meniscus: Grossly intact. Cruciate Ligaments: The anterior and posterior cruciate ligaments are intact. Collateral Ligaments: The medial collateral and lateral collateral ligamentous structures are intact. Tendons: The quadriceps, patellar, semimembranosus, and popliteus tendons are unremarkable. Musculature: No edema or fatty atrophy. Other: Small effusion. No popliteal cyst. No loose bodies. The medial and lateral retinacula are intact. The subcutaneous tissues and fat pads are unremarkable. IMPRESSION: 1. Examination is severely limited by patient body habitus. Within the limits of the examination, no definite tear of the medial meniscus is identified, although there is likely fraying of the posterior horn free edge. 2. Broad areas of deep partial-thickness cartilage loss at the central weightbearing medial femoral condyle and lateral patellar facet with small focus of subchondral marrow edema. RADIA
== END 2019-06-10 10:43 | disposition home or self-care (01) ==
LOC: DI 10:42
PROVIDERS: ATTEND Nurse Practitioner Gerontology
DX: S83.249A Other tear of medial meniscus, current injury, unspecified knee, initial encounter (principal)

== ENCOUNTER 2019-12-01 08:00 | Outpatient (CLI) | payer OTHER ==
[2019-12-01 12:26] LABS: BASOPHILS % (AUTO) 0.4 %; EOSINOPHILS # (AUTO) 0.2 10^3/uL (0.0-0.7); EOSINOPHILS % (AUTO) 2.9 %; HGB - HEMOGLOBIN 13.9 g/dL (12.0-16.0); LYMPHOCYTES # (AUTO) 2.5 10^3/uL (1.5-3.5); LYMPHOCYTES % (AUTO) 30.1 %; MEAN CORPUSCULAR HEMOGLOBIN 28.1 pg (27.0-31.0); MEAN CORPUSCULAR HGB CONC 32.3 g/dL (32.0-36.0); MEAN CORPUSCULAR VOLUME 87.2 fL (81.0-99.0); MEAN PLATELET VOLUME 10.6 fL (7.9-10.8); MONOCYTES # (AUTO) 0.5 10^3/uL (0.0-1.0); MONOCYTES % (AUTO) 5.5 %; NEUTROPHILS # (AUTO) 4.9 10^3/uL (1.5-6.6); NEUTROPHILS % (AUTO) 60.6 %; PLT - PLATELET COUNT 219 10^3/uL (130-450); RED BLOOD COUNT 4.94 10^6/uL (4.20-5.40); RED CELL DISTRIBUTION WIDTH 12.7 % (12.0-15.0); WHITE BLOOD COUNT 8.2 x10^3/uL (4.8-10.8)
[2019-12-01 12:53] LABS: ALBUMIN 3.9 g/dL (3.2-5.5); ALBUMIN/GLOBULIN RATIO 1.1 (1.0-2.2); ALKALINE PHOSPHATASE 78 IU/L (42-121); ALT ALANINE AMINOTRANSFERASE 53 IU/L (10-60); AST ASPARTATE AMINOTRANSFERASE 34 IU/L (10-42); BILIRUBIN,TOTAL 1.1 mg/dL (0.2-1.0); BUN - BLOOD UREA NITROGEN 11 mg/dL (6-20); CALCIUM 9.1 mg/dL (8.5-10.3); CARBON DIOXIDE - CO2 28 mmol/L (21-32); CHLORIDE 104 mmol/L (101-111); CHOL/HDL RATIO 5.2 (<4.4); CHOLESTEROL 188 mg/dL; CREATININE 0.7 mg/dL (0.4-1.0); GLUCOSE 112 mg/dL (70-100); HDL CHOLESTEROL 36 mg/dL; LDL CHOLESTEROL,CALCULATED 120 mg/dL; LDL/HDL RATIO 3.3 (<4.4); SODIUM 140 mmol/L (135-145); TOTAL PROTEIN 7.4 g/dL (6.7-8.2); VLDL CHOLESTEROL 32 mg/dL
[2019-12-01 13:07] LABS: HEMOGLOBIN A1c% 5.5 % (4.27-6.07)
== END 2019-12-01 23:59 | disposition home or self-care (01) ==
LOC: LAB.WCP 08:00
PROVIDERS: ATTEND Nurse Practitioner Family
DX: I48.91 Unspecified atrial fibrillation (principal); I10 Essential (primary) hypertension; Z68.43 Body mass index [BMI] 50.0-59.9, adult
CPT/HCPCS: 36415; 80053; 80061; 83036; 83721; 84443; 85025

== ENCOUNTER 2019-12-02 12:43 | Outpatient (CLI) | payer OTHER ==
--- NOTE | 2019-12-08 12:02 | Mammography Report ---
BILATERAL DIGITAL SCREENING MAMMOGRAM 3D/2D: 12/02/2019 CLINICAL: Baseline exam. Routine screening. No prior exams were available for comparison. The tissue of both breasts is heterogeneously dense. T his may lower the sensitivity of mammography. There is an oval equal density asymmetry with an indistinct margin in the left breast posterior depth central to the nipple seen on the mediolateral oblique view only. No other significant masses, calcifications, or other findings are seen in either breast. IMPRESSION: INCOMPLETE: NEEDS ADDITIONAL IMAGING EVALUATION The oval equal density asymmetry in the left breast is indeterminate. Mediolateral, exaggerated CC, and spot compression views as well as additional views with possible ultrasound are recommended. This exam was interpreted at Station ID: [id number]. NOTE: For mammograms, a report in lay terms will be sent to the patient. Approximately 15% of breast malignancies will not be visualized mammographically. In the management of a palpable breast mass, a negative mammogram must not discourage biopsy of a clinically suspicious lesion. Electronically Signed By: Partha colunga/geoffrey:12/08/2019 08:34:14 ACR BI-RADS Category 0: Incomplete 3340F PARENCHYMAL PATTERN: (D) - The breast(s) demonstrate(s) heterogeneously dense fibroglandular paryanna womack. BI-RADS CATEGORY: (0) - 0 Mammo and [place] [id number] Immediate follow-up LATERALITY: (B)
== END 2019-12-02 12:44 | disposition home or self-care (01) ==
LOC: DI.N 12:43
DX: Z12.31 Encounter for screening mammogram for malignant neoplasm of breast (principal); R92.8 Other abnormal and inconclusive findings on diagnostic imaging of breast
CPT/HCPCS: 77063; 77067

== ENCOUNTER 2019-12-19 09:20 | Emergency (ER) | payer OTHER ==
[2019-12-19] MEDS ORDERED: METOPROLOL 5 MG/5 ML VIAL IVP STA ×2 (09:47→11:06)
[2019-12-19 09:51] LABS: BASOPHILS # (AUTO) 0.1 10^3/uL (0.0-0.1); BASOPHILS % (AUTO) 0.5 %; EOSINOPHILS # (AUTO) 0.3 10^3/uL (0.0-0.7); EOSINOPHILS % (AUTO) 2.9 %; HGB - HEMOGLOBIN 15.1 g/dL (12.0-16.0); LYMPHOCYTES # (AUTO) 2.7 10^3/uL (1.5-3.5); LYMPHOCYTES % (AUTO) 24.2 %; MEAN CORPUSCULAR HEMOGLOBIN 28.3 pg (27.0-31.0); MEAN CORPUSCULAR HGB CONC 33.1 g/dL (32.0-36.0); MEAN CORPUSCULAR VOLUME 85.6 fL (81.0-99.0); MEAN PLATELET VOLUME 10.1 fL (7.9-10.8); MONOCYTES # (AUTO) 0.6 10^3/uL (0.0-1.0); MONOCYTES % (AUTO) 5.5 %; NEUTROPHILS # (AUTO) 7.4 10^3/uL (1.5-6.6); NEUTROPHILS % (AUTO) 66.4 %; PLT - PLATELET COUNT 292 10^3/uL (130-450); RED BLOOD COUNT 5.33 10^6/uL (4.20-5.40); RED CELL DISTRIBUTION WIDTH 12.5 % (12.0-15.0); WHITE BLOOD COUNT 11.1 x10^3/uL (4.8-10.8)
[2019-12-19 10:04] LABS: ALBUMIN 4.1 g/dL (3.2-5.5); ALBUMIN/GLOBULIN RATIO 1.1 (1.0-2.2); BILIRUBIN,TOTAL 0.9 mg/dL (0.2-1.0); CREATININE 0.6 mg/dL (0.4-1.0); TOTAL PROTEIN 7.8 g/dL (6.7-8.2)
[2019-12-19] MEDS ORDERED: ASPIRIN 325 MG TABLET PO STA (11:27)
--- NOTE | 2019-12-19 11:34 | XRAY Report ---
PROCEDURE: Chest 1 View X-Ray INDICATIONS: Chest Pain TECHNIQUE: One view of the chest was acquired. COMPARISON: None available FINDINGS: Surgical changes and devices: None. Lungs and pleura: No pleural effusions or pneumothorax. Lungs are clear. Mediastinum: The aorta is prominent and tortuous. The cardiac contours are within normal limits. Bones and chest wall: No suspicious bony lesions. Overlying soft tissues appear unremarkable. IMPRESSION: Portable chest within normal limits for age. Reviewed by: Clif Noguera MD on 12/19/2019 10:32 AM [facility] Approved by: Clif Noguera MD on 12/19/2019 10:32 AM [facility] Station ID: [id number]
[2019-12-19] MEDS ORDERED: PROCAINAMIDE 1,000 MG in SODIUM CHLORIDE 0.9% 240 ML IV STA (12:15)
[2019-12-19] MEDS ORDERED: KETAMINE 500 MG/10 ML VIAL IM STA (14:31)
--- NOTE | 2019-12-19 14:48 | ED Physician Documentation ---
ED Addendum - Addendum Addendum: 12/19/19 14:[address] Corona with sedation on this patient since she has not passed the sedation test yet. Briefly this is a 39-year-old woman with history of obstructive sleep apnea and morbid obesity. Mallampati 4. As such we chose an airway neutral agent specifically 150 mg of ketamine IV push which had good response and no ill effect on the airway. Dr. Corona performed the sedation, 2 shocks, first at 100 the second at 200 J, the second shock was successful in converting her to normal sinus rhythm.
[2019-12-19] MEDS ORDERED: MIDAZOLAM 2 MG/2 ML VIAL IVP STA (15:06)
--- NOTE | 2019-12-19 15:09 | ED Physician Documentation ---
PD HPI CHEST PAIN - Stated complaint Stated Complaint: AFIB/CHEST PRESSURE - Chief complaint Chief Complaint: Cardiac - History obtained from History obtained from: Patient, Family - Additional information Additional information: 39-year-old woman with past medical history of atrial fibrillation on anticoagulation presents with chest pressure dizziness and nausea since 8:30 AM. Patient took metoprolol 25 mg at 5 AM this morning. Patient endorses normally being in sinus rhythm and felt normal yesterday. Compliant with medications for the past three weeks but had a lapse due to insurance changeover prior to that. denies fevers chills shortness of breath nausea or diaphoresis. Last stress test 2017. 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 Primary Dr. Casie Gamez. 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: Oophrectomy - Present Medications Home Medications: Ambulatory Orders Medication Instructions Recorded Confirmed Metoprolol Tartrate 25 mg PO BID 03/24/17 12/19/19 Dabigatran Etexilate Mesylate 150 mg PO BID 12/19/19 12/19/19 [Pradaxa] Losartan [Cozaar] 25 mg PO DAILY 12/19/19 12/19/19 - Allergies Allergies/Adverse Reactions: Allergies Allergy/AdvReac Type Severity Reaction Status Date / Time amoxicillin [Amoxicillin] Allergy Hives Verified 12/19/19 13:00 meperidine HCl * Allergy vomiting Verified 12/19/19 13:00 [From Demerol] Penicillins Allergy Hives Verified 12/19/19 13:00 - Social History Does the pt smoke?: No Smoking Status: Former smoker Does the pt drink ETOH?: No Does the pt have substance abuse?: No - Immunizations Immunizations are current?: Yes - POLST Patient has POLST: No PD ED PE NORMAL - General General: Alert and oriented X 3 - HEENT HEENT: Atraumatic - Neck Neck: Supple, no meningeal sign - Cardiac Cardiac: Other ( tachycardic, irregular) - Respiratory Respiratory: No respiratory distress - Abdomen Abdomen: Soft, Non tender - Female Female : Deferred - Rectal Rectal: Deferred - Back Back: No CVA TTP - Derm Derm: Normal color - Extremities Extremities: No deformity - Neuro Neuro: Alert and oriented X 3 - Psych Psych: Normal mood, Normal affect Results - Vitals Vitals: Vital Signs - 24 hr 12/19/19 12/19/19 12/19/19 09:25 09:45 10:01 Temperature 36.3 C L Heart Rate 121 H 124 H 118 H Respiratory 23 17 18 Rate Blood Pressure 150/102 H 141/98 H 141/98 H O2 Saturation 98 98 98 12/19/19 12/19/19 12/19/19 10:16 10:32 11:00 Temperature Heart Rate 110 H 114 H 112 H Respiratory 22 16 17 Rate Blood Pressure 130/84 H 114/92 H 125/93 H O2 Saturation 98 96 97 12/19/19 12/19/19 12/19/19 11:54 12:45 13:42 Temperature Heart Rate 106 H 121 H 136 H Respiratory 14 17 15 Rate Blood Pressure 143/91 H 138/95 H 125/110 H O2 Saturation 98 98 97 12/19/19 12/19/19 12/19/19 14:07 14:35 14:36 Temperature Heart Rate 120 H 119 H 114 H Respiratory 18 18 17 Rate Blood Pressure 127/82 H 131/115 H 129/86 H O2 Saturation 99 98 98 12/19/19 12/19/19 12/19/19 14:40 14:45 14:48 Temperature Heart Rate 104 H 120 H 96 Respiratory 20 16 25 H Rate Blood Pressure 127/94 H 164/115 H O2 Saturation 99 96 12/19/19 12/19/19 12/19/19 14:55 15:02 15:17 Temperature Heart Rate 95 90 87 Respiratory 16 14 19 Rate Blood Pressure 173/115 H 164/107 H 154/69 H O2 Saturation 97 97 95 12/19/19 12/19/19 12/19/19 15:32 15:51 16:36 Temperature Heart Rate 80 81 78 Respiratory 17 17 18 Rate Blood Pressure 123/82 H 128/75 134/86 H O2 Saturation 96 95 96 Oxygen O2 Source Room air - EKG (time done) 1235 Rate: Tachy (133) Rhythm: Atrial fibrillation 1449 Rate: Tachy (100) Rhythm: Sinus tachycardia Compare to prior EKG: Changed from prior EKG (reverted to NSR s/p cardioversion) - Labs Labs: Laboratory Tests 12/19/19 12/19/19 12/19/19 09:35 09:35 09:35 WBC 11.1 H RBC 5.33 Hgb 15.1 Hct 45.6 MCV 85.6 MCH 28.3 MCHC 33.1 RDW 12.5 Plt Count 292 MPV 10.1 Neut # (Auto) 7.4 H Lymph # (Auto) 2.7 [place] # (Auto) 0.6 Eos # (Auto) 0.3 Baso # (Auto) 0.1 Absolute Nucleated RBC 0.00 Nucleated RBC % 0.0 D-Dimer Sodium 138 Potassium 4.4 Chloride 102 Carbon Dioxide 25 Anion Gap 11.0 BUN 10 Creatinine 0.6 Estimated GFR (MDRD) 111 Glucose 161 H Calcium 9.0 Total Bilirubin 0.9 AST 36 ALT 58 Alkaline Phosphatase 85 Troponin I High Sens 21.9 H* Total Protein 7.8 Albumin 4.1 Globulin 3.7 Albumin/Globulin Ratio 1.1 Lipase 34 12/19/19 10:06 WBC RBC Hgb Hct MCV MCH MCHC RDW Plt Count MPV Neut # (Auto) Lymph # (Auto) [place] # (Auto) Eos # (Auto) Baso # (Auto) Absolute Nucleated RBC Nucleated RBC % D-Dimer 303.6 H Sodium Potassium Chloride Carbon Dioxide Anion Gap BUN Creatinine Estimated GFR (MDRD) Glucose Calcium Total Bilirubin AST ALT Alkaline Phosphatase Troponin I High Sens Total Protein Albumin Globulin Albumin/Globulin Ratio Lipase Procedures - Cardioversion Attempt 2 Time of attempt: 14:30 Indication: Tachyarrhythmia Risks, benefits, alternatives explained to: Pt Prep: IV, O2, certified nurse midwife, Pulse ox, Airway equip Meds: Ketamine CS via: Pads, AP approach Sync: Biphasic, 200j Post cardioversion rhythm: NSR Performed by: ED Attempt 1 Time of attempt: 14:25 Indication: Tachyarrhythmia Risks, benefits, alternatives explained to: Pt Prep: IV, O2, certified nurse midwife, Pulse ox, Airway equip Meds: Ketamine CS via: Pads Sync: Biphasic, 100j Post cardioversion rhythm: A-fib Performed by: ED PD MEDICAL DECISION MAKING - ED course ED course: 39-year-old woman with medical history of atrial fibrillation on anticoagulation presented in atrial fibrillation starting early this morning. Attempted rate control with IV metoprolol x2, and rhythm control with procainamide without success. At that time synchronized cardioversion was performed under conscious sedation at 100 and then 200 J with successful conversion to normal sinus rhythm. Symptom resolution at that time. Patient aware she is to follow up immediately with outpatient cardiology. strict return precautions given. Departure - Departure Disposition: 01 Home, Self Care Clinical Impression: Atrial fibrillation, Palpitations, Paroxysmal atrial fibrillation with rapid ventricular response Condition: Good Instructions: Atrial Fibrillation Dc Comments: You have been seen in the emergency department for atrial fibrillation with rapid ventricular rate. You were given metoprolol IV as well as procainamide and underwent conscious sedation with ketamine for electrical cardioversion. 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 Alma Sheets in [place] immediately. Also follow-up with Dr. Casie Gamez, your primary doctor.
[2019-12-19 17:09] VITALS: BP 137/90
== END 2019-12-19 17:12 | disposition home or self-care (01) ==
LOC: ED 09:20
DX: I48.0 Paroxysmal atrial fibrillation (principal); Z79.01 Long term (current) use of anticoagulants; I10 Essential (primary) hypertension; G47.33 Obstructive sleep apnea (adult) (pediatric); E66.01 Morbid (severe) obesity due to excess calories; Z68.42 Body mass index [BMI] 45.0-49.9, adult; Z87.891 Personal history of nicotine dependence
CPT/HCPCS: 36415; 71045; 80053; 83690; 84484; 85025; 85379; 92960; 93005; 96365; 96375; 96376; 99152; 99284; 99285; A9270; J2690; 94770

== ENCOUNTER 2019-12-30 10:06 | Outpatient (CLI) | payer OTHER ==
--- NOTE | 2019-12-31 11:46 | Mammography Report ---
UNILATERAL LEFT DIGITAL DIAGNOSTIC MAMMOGRAM 3D/2D: 12/30/2019 CLINICAL: Patient returns today to evaluate a focal asymmetry in the left breast. Comparison is made to exam dated: 12/02/2019 mammogram - [facility]. The tissue o f left breast is heterogeneously dense. This may lower the sensitivity of mammography. The oval equal density asymmetry with an indistinct margin in the left breast posterior depth central to the nipple seen on the mediolateral oblique view only is no longer seen. No other significant masses or calcifications are seen in the breast. IMPRESSION: BENIGN There is no mammographic evidence of malignancy. Previously questioned asymmetry dissipates with spot compression, indicating that it represents normal fibroglandular tissue. Return to annual mammogram screening schedule is recommended. This exam was interpreted at Station ID: [id number]. NOTE: For mammograms, a report in lay terms will be sent to the patient. Approximately 15% of breast malignancies will not be visualized mammographically. In the management of a palpable breast mass, a negative mammogram must not discourage biopsy of a clinically suspicious lesion. Electronically Signed By: Erik Sargent M.D. jr/:12/30/2019 11:14:53 ACR BI-RADS Category 2: Benign Finding(s) 3342F PARENCHYMAL PATTERN: (D) - The breast(s) demonstrate(s) heterogeneously dense fibroglandular candy womack. BI-RADS CATEGORY: (2) - 2 Mammogram [id number] return to screening LATERALITY: (B)
== END 2019-12-30 10:07 | disposition home or self-care (01) ==
LOC: DI 10:06
PROVIDERS: ATTEND Nurse Practitioner Family
DX: R92.8 Other abnormal and inconclusive findings on diagnostic imaging of breast (principal)

== ENCOUNTER 2020-03-03 08:09 | Outpatient (CLI) | payer OTHER | END 2020-03-03 08:10 | disposition home or self-care (01) | LOC: SC 08:09 | PROVIDERS: ATTEND Nurse Practitioner Family | DX: G47.33 Obstructive sleep apnea (adult) (pediatric) (principal); R09.02 Hypoxemia | CPT/HCPCS: 95806 ==

== ENCOUNTER 2020-03-24 15:42 | Outpatient (CLI) | payer OTHER ==
--- NOTE | 2020-03-24 16:10 | SLEEP CARE CONSULTATION ---
Information from patient questionnaire entered by Luana Rodriguez. I have reviewed and concur with the information entered by Luana Rodriguez. This document represents the service I personally performed and the decisions made by me, Melissa Donald ARNP. History of Present Illness Service Date and Time: 03/24/2020 1542 Initial [place] Sleepiness Scale score: 9 (in 2015) Current [place] Sleepiness Scale score: 8 Additional HPI information: MARTA GREENE returns for follow up and results of the recently performed home sleep study. I explained the pathophysiology behind obstructive sleep apnea. We then spent quite a bit of time discussing different treatment options. For mild obstructive sleep apnea, surgery and oral appliance are alternatives to nasal CPAP therapy but in moderate or severe cases, nasal CPAP is the most effective and reliable treatment. Because apnea is primarily in supine position, then positional management therapy could be effective. Methods discussed such as positioning with pillows, using a T-shirt with tennis balls in the back, and shown commercial products that have a pillow format on back to prevent supine sleep. I reviewed the impact of weight changes on sleep apnea and strongly recommended losing weight. After some discussion, the patient opted to go with the nasal CPAP therapy. Nasal autoCPAP set at [id number] will be ordered with rationale explained. A manual titration study will be ordered if unable to find optimal pressure with office adjustments. I explained how CPAP machine works with sample devices Respironics Dreamstation and [employer]ear [id number] and what to expect when using the machine. Using CPAP every night in order to get used to it was emphasized. Patient advised to put CPAP mask on before getting into bed so as not to fall asleep without CPAP. To assist acclimation to CPAP use, it could also be used for a short time during day while reading or watching TV. The patient was instructed to call the CPAP supplier to discuss any mechanical problem that may occur. If the mask given is uncomfortable or is difficult to keep on through the night even with adjustment, contact the CPAP supplier as many will replace with another mask style if notified before 30 days. If snoring or perceives is not getting enough air or too much air from the machine, notify this office. Patient does not drink alcohol. Patient was cautioned about risks of drowsy driving until sleepiness symptoms resolve. Sleep Study - Results Type of Sleep Study: Home sleep study Prior sleep studies: Yes Year and Where: 2014 and 2016 [facility] Polysomnography/Home Sleep Study results: Physician Impression: The quality of the study is good. The length of the study is adequate (> 240 minutes). Please also see the tabulated and graphic data. 1. Obstructive Sleep Apnea-Hypopnea (ICD-10 G47.33), mild, with an AHI of 7.3/hr and jamin SaO2 of 78%. During the study, the patient had 0 apneas (0 obstructive, 0 central, 0 mixed) and 55 hypopneas. The longest episode lasted 145.5 seconds. The patient almost exclusively in supine position (supine AHI was 7.5 and non-supine, 4.92). The respiratory events were most likely associated with REM sleep. 2. Hypoxemia (ICD-10 R09.02), moderate, with the lowest oxygen saturation of 78 % and 25.0 minutes with SaO2 under 90%. Baseline oxygen saturation was normal (Average oxygen saturation was 93%). Allergies and Home Medications Home medication list reviewed: Yes (no changes) Review of Systems Review of systems same as previous: Yes (no changes) Physical Exam Heart Rate: 52 O2 Saturation: 98 Height: 5 ft 6 in Weight: 317 lb Body Mass Index: 51.1 BMI Classification: Morbidly Obese Impression and Plan 1. Obstructive Sleep Apnea-Hypopnea Syndrome, mild, with lowest oxygen saturation of 78%. Obviously this is the cause of the patients symptoms of unrefreshed sleep, and excessive daytime sleepiness. Positive pressure therapy could benefit heart arrhythmia and hypertension. Patient has been on a CPAP before and will be re-started on nasal autoCPAP therapy with pressure set at 4- 15 cmH2O. A manual titration study will be completed if unable to find optimal treatment pressure with office adjustments. Compliance guidelines also reviewed. A copy of compliance guidelines will be given for reference at check out. Because the apnea is more severe supine, I instructed to avoid sleeping supine using pillow positioning until able to start CPAP use. 2. Hypoxemia, moderate, with a jamin oxygen saturation of 78% and patient spent 25.0 minutes with SaO2 under 90%. Her baseline oxygen saturation was normal with an average oxygen saturation of 93%. * Nasal auto CPAP therapy, pressure at 4-15 cm H2O. * Attempt to lose weight. * Avoid alcohol consumption near bedtime. * Avoid supine sleep until using CPAP. * The patient is again cautioned about driving until sleepiness completely resolves. * Return one month after CPAP obtained. I will assess response to therapy and compliance at that time. Counseling Topics: Weight loss health impact Visit Type: In Office Time Spent with Patient (minutes): 20 Provider Statement: I spent 100% of the Face to Face Visit with the patient with greater than 50% spent counseling the patient and coordination of care.
== END 2020-03-24 15:43 | disposition home or self-care (01) ==
LOC: SC 15:42
PROVIDERS: ATTEND Nurse Practitioner Family
DX: G47.33 Obstructive sleep apnea (adult) (pediatric) (principal); R09.02 Hypoxemia; E66.01 Morbid (severe) obesity due to excess calories; Z68.43 Body mass index [BMI] 50.0-59.9, adult
CPT/HCPCS: 99212; 99213

== ENCOUNTER 2020-05-30 14:27 | Outpatient (CLI) | payer OTHER ==
--- NOTE | 2020-05-30 14:50 | SLEEP CARE CONSULTATION ---
Information from patient questionnaire entered by Luana Rodriguez. I have reviewed and concur with the information entered by Luana Rodriguez. This document represents the service I personally performed and the decisions made by , Melissa Donald ARNP. History of Present Illness Service Date and Time: 05/30/20201426 Previous diagnosis: Mild, Obstructive Sleep Apnea-Hypopnea Syndrome AHI: 7.3 ((9.9 in 2017, 3.6 in 2014) Reason for follow up: first compliance (04/13/20) Equipment type: CPAP Equipment obtained from: [employer] ([place]; got initial supplies) Mask style: Nasal Mask brand: Respironics (Dreamwear) Backup mask available: No (will keep old mask when replaced) Last cushion change: 1 month Prior sleep studies: Yes Year and Where: 2014, 2016 and 2020 [facility] additional information: MARTA GREENE was diagnosed to have mild, AHI 7.3, obstructive sleep apnea-hypopnea syndrome and returned today for CPAP therapy first compliance follow-up. CPAP Compliance Data - Data Reviewed with Patient Average duration of nightly device use: 6 hours 53 minutes Compliance rate %: 93.3 Current pressure setting (cmH2O): 4-15 (median 6.7, avg 8.5, max 8.9) Humidity settin Heated hose settin Average residual AHI: 1.7 Average large leak: 4 seconds Subjective Patient concerns: denies: aerophagia, mask discomfort, air blowing in eyes, mask leak noise, condensation in mask/hose, nasal congestion, dry mouth, nose, throat, epistaxis, other Observed to snore while using device: No Current pressure setting perceived as: comfortable On therapy, patient: reports: sleeping better, awakening more refreshed, being more awake and alert during the day, more rested overall. denies: drowsiness while driving Initial [place] Sleepiness Scale score: 9 (in 2014) Current [place] Sleepiness Scale score: 4 Allergies and Home Medications Home medication list reviewed: Yes (Metformin) Review of Systems Review of systems same as previous: Yes ( DM type 2) Physical Exam Heart Rate: 63 O2 Saturation: 97 Height: 5 ft 6 in Weight: 321 lb Body Mass Index: 51.7 BMI Classification: Morbidly Obese Impression and Plan 1. Obstructive Sleep Apnea-Hypopnea Syndrome, mild, with good treatment compliance and good apnea control. On CPAP therapy, the patient has better sleep quality and is more rested overall. She has significant improvement of her sleep apnea and is satisfied with her treatment. Patient's apnea severity and rationale for treatment to reduce apnea, improve sleep quality and reduce cardiovascular and cerebrovascular events was reviewed. I also reviewed the benefit of consistent device use of CPAP for hypertension, diabetes and arrhythmia. * Change auto CPAP pressure to 7-9 cmH2O * Notify me if snoring with mask or feeling that the pressure is too much or too little * Attempt to lose weight * Call this office if any problems using CPAP * Return for follow up in 1-2 months, or sooner if concerns arise Counseling Topics: Spare mask, Weight loss health impact Visit Type: In Office Time Spent with Patient (minutes): 14 Provider Statement: I spent 100% of the Face to Face Visit with the patient with greater than 50% spent counseling the patient and coordination of care.
== END 2020-05-30 14:28 | disposition home or self-care (01) ==
LOC: SC 14:27
PROVIDERS: ATTEND Nurse Practitioner Family
DX: G47.33 Obstructive sleep apnea (adult) (pediatric) (principal); E11.9 Type 2 diabetes mellitus without complications; E66.01 Morbid (severe) obesity due to excess calories; Z68.43 Body mass index [BMI] 50.0-59.9, adult
CPT/HCPCS: 99212

== ENCOUNTER 2020-07-11 15:26 | Outpatient (CLI) | payer OTHER ==
--- NOTE | 2020-07-11 15:49 | SLEEP CARE CONSULTATION ---
Information from patient questionnaire entered by Maricel Bernstein. I have reviewed and concur with the information entered by Maricel Bernstein. This document represents the service I personally performed and the decisions made by , Melissa Donald ARNP. History of Present Illness Service Date and Time: 07/11/2020 1526 Previous diagnosis: Mild, Obstructive Sleep Apnea-Hypopnea Syndrome AHI: 7.3 ((9.9 in 2017, 3.6 in 2014) Reason for follow up: other (6 week with pressure change) Equipment type: CPAP Equipment obtained from: [facility] [facility] (getting supplies as needed) Mask style: Nasal (cushion) Backup mask available: No (will keep old mask when replaced) Last cushion change: 2.5 months Prior sleep studies: Yes Year and Where: 2014, 2016 and 2020 [facility] Type of Sleep Study: Home sleep study HPI additional information: MARTA GREENE was diagnosed to have mild, AHI 7.3, obstructive sleep apnea-hypopnea syndrome and returned today for CPAP therapy 6 week pressure change follow-up. CPAP Compliance Data - Data Reviewed with Patient Average duration of nightly device use: 7 hr 28 min Compliance rate %: 97.6 (42 days) Current pressure setting (cmH2O): 7-9 Humidity settin Heated hose settin Average residual AHI: 1.7 Central apnea: 0.2 Obstructive apnea: 0.8 Average large leak: 4 sec Subjective Patient concerns: denies: aerophagia, mask discomfort, air blowing in eyes, mask leak noise, condensation in mask/hose, nasal congestion, dry mouth, nose, throat, epistaxis, other Observed to snore while using device: No Current pressure setting perceived as: comfortable On therapy, patient: reports: sleeping better, awakening more refreshed, being more awake and alert during the day, more rested overall. denies: drowsiness while driving Initial [place] Sleepiness Scale score: 9 (in 2014) Current [place] Sleepiness Scale score: 5 Allergies and Home Medications Home medication list reviewed: Yes (no new meds) Review of Systems Review of systems same as previous: Yes (no changes) Physical Exam Heart Rate: 49 O2 Saturation: 98 Height: 5 ft 6 in Weight: 319 lb Weight change since last visit: 2 lb Body Mass Index: 51.5 BMI Classification: Morbidly Obese Impression and Plan 1. Obstructive Sleep Apnea-Hypopnea Syndrome, mild, with good treatment complia nce and good apnea control. On CPAP therapy, the patient has better sleep quality and is more rested overall. Patient has lost weight. Currently patients BMI is 51.5. Obesity increases the risk of apnea, CPAP pressure requirements and overall health risks especially cardiovascular and diabetes. Thus patient is advised to continue to lose weight. She has been seeing a diet specialist and started Metformin for her diabetes. She has lost 2 pounds since her last visit. Patient's apnea severity and rationale for treatment to reduce apnea, improve sleep quality and reduce cardiovascular and cerebrovascular events was reviewed. I also reviewed the benefit of consistent device use of CPAP for hypertension, diabetes, and arrhythmia. * Continue auto CPAP pressure at 7-9 cmH2O * Notify me if snoring with mask or feeling that the pressure is too much or too little * Continue to try to lose weight * Call this office if any problems using CPAP * Return for follow up in 3 months, or sooner if concerns arise Counseling Topics: Spare mask, Weight loss health impact Visit Type: In Office Time Spent with Patient (minutes): 12 Provider Statement: I spent 100% of the Face to Face Visit with the patient with greater than 50% spent counseling the patient and coordination of care.
== END 2020-07-11 15:27 | disposition home or self-care (01) ==
LOC: SC 15:26
PROVIDERS: ATTEND Nurse Practitioner Family
DX: G47.33 Obstructive sleep apnea (adult) (pediatric) (principal); E66.01 Morbid (severe) obesity due to excess calories; Z68.43 Body mass index [BMI] 50.0-59.9, adult
CPT/HCPCS: 99212

== ENCOUNTER 2020-10-11 07:46 | Outpatient (CLI) | payer OTHER ==
--- NOTE | 2020-10-11 08:15 | SLEEP CARE CONSULTATION ---
Information from patient questionnaire entered by Maricel Bernstein. I have reviewed and concur with the information entered by Maricel Bernstein. This document represents the service I personally performed and the decisions made by , Melissa Donald ARNP. History of Present Illness Service Date and Time: 10/11/2020 0746 Previous diagnosis: Mild, Obstructive Sleep Apnea-Hypopnea Syndrome AHI: 7.3 (in 2020(9.9 in 2016, 3.6 in 2014) Reason for follow up: three month Equipment type: CPAP Equipment obtained from: [employer] (getting supplies as needed) Mask style: Nasal Backup mask available: Yes (old mask) Last cushion change: 2 months Prior sleep studies: Yes Year and Where: 2020(HST), 2016 and 2014(PSG) - [facility] Type of Sleep Study: Home sleep study HPI additional information: MARTA GREENE was diagnosed to have mild, AHI 7.3, obstructive sleep apnea-hypopnea syndrome and returned today for CPAP therapy three month follow-up. CPAP Compliance Data - Data Reviewed with Patient Average duration of nightly device use: 7 hr 33 min Compliance rate %: 100 (90 days) Current pressure setting (cmH2O): 7-9 Humidity settin Heated hose settin Average residual AHI: 1.7 Average large leak: 4 sec Subjective Patient concerns: denies: aerophagia, mask discomfort, air blowing in eyes, mask leak noise, condensation in mask/hose, nasal congestion, dry mouth, nose, throat, epistaxis, other Observed to snore while using device: No Current pressure setting perceived as: comfortable On therapy, patient: reports: sleeping better, awakening more refreshed, being more awake and alert during the day, more rested overall. denies: drowsiness while driving Initial [place] Sleepiness Scale score: 9 (in 2014) Current [place] Sleepiness Scale score: 4 Allergies and Home Medications Home medication list reviewed: Yes Allergy and home medication list: Berberine 500 mg BID Metoprolol 12.5 mg BID Review of Systems Review of systems same as previous: Yes (no changes) Physical Exam Heart Rate: 57 O2 Saturation: 98 Height: 5 ft 6 in Weight: 292 lb Weight change since last visit: 23 lb loss Body Mass Index: 47.1 BMI Classification: Morbidly Obese Nasal exam: positive: blood tinged nasal secretions Impression and Plan 1. Obstructive Sleep Apnea-Hypopnea Syndrome, mild, with excellent treatment compliance and good apnea control. On CPAP therapy, the patient has better sleep quality and is more rested overall. Patient has recieved a letter about the recall on Dreamstation CPAP. Patient was encouraged to register their device online with [employer] for the recall to see if their device is affected. If their device is affected they should start a claim. Patient denies any black particles seen in machine or hoses, any unusual odors coming from device. Patient has not experienced any physical symptoms such as upper airway irritation, headache, skin or eye irritation, asthma, nausea/vomiting, difficulty breathing or chest pain. Patient informed that they may use an inline CPAP filter that they can obtain online to reduce chance of any particles being inhaled or ingested. We discussed thoroughly the health risks of not using the CPAP versus continuing use with the filter in place. If patient is not able to sleep due to waking up choking, gasping for air or other respiratory distress that they may decide to continue using it until it is either replaced or repaired. Patient voiced understanding and agreement with plan. Patient's apnea severity and rationale for treatment to reduce apnea, improve sleep quality and reduce cardiovascular and cerebrovascular events was reviewed. I also reviewed the benefit of consistent device use of CPAP for hypertension, arrhythmia and diabetes. Marta has lost about 23 pounds since her last visit. She is continuing with her efforts. She has been able to bring her A1C down. Currently patients BMI is 47.1. The patient's CPAP pressure range should accommodate some weight loss. Symptoms to report for additional pressure adjustment discussed. * Continue auto CPAP pressure at 7-9 cmH2O * Patient to register her device with the [employer] recall * Notify me if snoring with mask or feeling that the pressure is too much or too little * Attempt to lose weight * Call this office if any problems using CPAP * Return for follow up in 6 months, or sooner if concerns arise Counseling Topics: Spare mask, Weight loss health impact Visit Type: In Office Time Spent with Patient (minutes): 15 Provider Statement: I spent 100% of the Face to Face Visit with the patient with greater than 50% spent counseling the patient and coordination of care.
== END 2020-10-11 07:47 | disposition home or self-care (01) ==
LOC: SC 07:46
PROVIDERS: ATTEND Nurse Practitioner Family
DX: G47.33 Obstructive sleep apnea (adult) (pediatric) (principal); E66.01 Morbid (severe) obesity due to excess calories; Z68.42 Body mass index [BMI] 45.0-49.9, adult
CPT/HCPCS: 99212

== ENCOUNTER 2020-12-29 14:29 | Emergency (ER) | payer OTHER ==
[2020-12-29] MEDS ORDERED: KETOROLAC 30 MG/ML VIAL IVP STA (16:11)
[2020-12-29] MEDS ORDERED: SODIUM CHLORIDE 0.9% 1,000 ML IV STA (16:11)
--- NOTE | 2020-12-29 16:12 | ED Physician Documentation ---
PD HPI DYSPNEA - Stated complaint Stated Complaint: C+,COUGH,HEADACHE,SINUS CONGESTION - Chief complaint Chief Complaint: Resp - History obtained from History obtained from: Patient - Additional information Additional information: This is a 40-year-old woman with history of type 2 diabetes and atrial fibrillation, also BMI of 43 who presents with Covid. She has been sick for about 3 days with congestion, both sinus and chest, mild cough but no shortness of breath. Also headaches. Her daughter had Covid and she took a home test last night that was positive. She is fully immunized against Covid having had her second Pfizer shot may be 2 months ago. Review of Systems Constitutional: reports: Chills, Myalgias Nose: reports: Rhinorrhea / runny nose, Congestion Throat: reports: Sore throat Respiratory: reports: Cough. 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 : None Psych: None Musculoskeletal: None Derm: None - Past Surgical History Past Surgical History: Yes General: Cholecystectomy, Appendectomy /INSURANCE FOLLOW UP REPRESENTATIVE: Oophrectomy - Present Medications Home Medications: Ambulatory Orders Medication Instructions Recorded Confirmed Metoprolol Tartrate 25 mg PO BID 03/24/17 12/29/20 Dabigatran Etexilate Mesylate 150 mg PO BID 12/19/19 12/29/20 [Pradaxa] Losartan [Cozaar] 25 mg PO DAILY 12/19/19 12/29/20 Metformin HCl [Metformin ER 750 mg PO DAILY 12/29/20 12/29/20 Gastric] - Allergies Allergies/Adverse Reactions: Allergies Allergy/AdvReac Type Severity Reaction Status Date / Time amoxicillin [Amoxicillin] Allergy Hives Verified 12/19/19 13:00 meperidine HCl * Allergy vomiting Verified 12/19/19 13:00 [From Demerol] Penicillins Allergy Hives Verified 12/19/19 13:00 - Social History Does the pt smoke?: No Smoking Status: Former smoker Does the pt drink ETOH?: No Does the pt have substance abuse?: No - Immunizations Immunizations are current?: Yes - POLST Patient has POLST: No PD ED PE NORMAL - Vitals Vital signs reviewed: Yes - General General: Alert and oriented X 3, No acute distress - Cardiac Cardiac: RRR, No murmur - Respiratory Respiratory: No respiratory distress, Clear bilaterally - Abdomen Abdomen: Non tender - Derm Derm: No rash - Neuro Neuro: Alert and oriented X 3, Normal speech Results - Vitals Vitals: Vital Signs - 24 hr 12/29/20 12/29/20 16:06 17:49 Temperature 37.8 C Heart Rate 65 88 Respiratory 20 18 Rate Blood Pressure 175/89 H 139/69 H O2 Saturation 99 99 Oxygen O2 Source Room air - Labs Labs: Laboratory Tests 12/29/20 16:07 Nasal Adenovirus (PCR) NOT DETECTED Nasal B. parapertussis DNA (PCR) NOT DETECTED Nasal Coronavir 229E PCR NOT DETECTED Nasal Coronavir HKU1 PCR NOT DETECTED Nasal Coronavir NL63 PCR NOT DETECTED Nasal Coronavir OC43 PCR NOT DETECTED Nasal Enterovir/Rhinovir PCR NOT DETECTED Nasal Influenza B PCR NOT DETECTED Nasal Influenza A PCR NOT DETECTED Nasal Parainfluen 1 PCR NOT DETECTED Nasal Parainfluen 2 PCR NOT DETECTED Nasal Parainfluen 3 PCR NOT DETECTED Nasal Parainfluen 4 PCR NOT DETECTED Nasal RSV (PCR) NOT DETECTED Nasal B.pertussis DNA PCR NOT DETECTED Nasal C.pneumoniae (PCR) NOT DETECTED Kody Human Metapneumo PCR NOT DETECTED Nasal M.pneumoniae (PCR) NOT DETECTED Nasal SARS-CoV-2 (PCR) DETECTED A PD MEDICAL DECISION MAKING - ED course ED course: Mab therapy for this patient with Covid was considered and discussed with the patient. The patient was provided the handout: ``Casirivimab plus Imdevimab Fact Sheet for Patients, Parents and Caregivers, and the information within was discussed with the patient. The patient was informed of alternatives prior to receiving Mab therapy. The patient was informed that these medications are unapproved drugs that are authorized for use under Emergency Use Authorization by the FDA. The patient will be monitored for at least 1 hour after infusion is complete. Departure - Departure Disposition: 01 Home, Self Care Clinical Impression: COVID-19 Condition: Good Record reviewed to determine appropriate education?: Yes Instructions: ED Viral Syndrome Comments: You are seen today for COVID-19, you received antibody therapy, brand name Regeneron. Otherwise you need to self quarantine until 14 days after symptom onset and to return if worse especially if you develop shortness of breath. Ideally someone will buy you a pulse oximeter which are available [id number] and cost $15-$20. Your blood oxygen levels today were very good but anything less than 90 to 92% gets concerning so you could check it at home if you are able to find one.
[2020-12-29 17:02] LABS: CORONAVIRUS 229E-RESP PCR NOT DETECTED; CORONAVIRUS HKU1-RESP PCR NOT DETECTED; CORONAVIRUS NL63-RESP PCR NOT DETECTED; CORONAVIRUS OC43-RESP PCR NOT DETECTED
[2020-12-29 17:04] LABS: B. PARAPERTUSSIS- RESP PCR PAN NOT DETECTED; B. PERTUSSIS- RESP PCR PANEL NOT DETECTED; C. PNEUMONIAE- RESP PCR PANEL NOT DETECTED; HUMAN METAPNEUMOVIRUS NOT DETECTED; INFLUENZA A- RESP PCR PANEL NOT DETECTED; INFLUENZA B - RESP PCR PANEL NOT DETECTED; M. PNEUMONIAE- RESP PCR PANEL NOT DETECTED; PARAINFLUENZA VIRUS 1 NOT DETECTED; PARAINFLUENZA VIRUS 2 NOT DETECTED; PARAINFLUENZA VIRUS 3 NOT DETECTED; PARAINFLUENZA VIRUS 4 NOT DETECTED; RHINOVIRUS/ENTEROVIRUS NOT DETECTED; RSV- RESP PCR PANEL NOT DETECTED; SARS-CoV-2 -RESP PCR PANEL DETECTED
[2020-12-29] MEDS ORDERED: CASIRIVIMAB/IMDEVIMAB 10 ML in SODIUM CHLORIDE 0.9% 50 ML IV ONE (17:35)
[2020-12-29 18:54] VITALS: BP 134/90
== END 2020-12-29 19:23 | disposition home or self-care (01) ==
LOC: ED 14:29
DX: U07.1 COVID-19 (principal); Z68.41 Body mass index [BMI] 40.0-44.9, adult; E11.9 Type 2 diabetes mellitus without complications; Z79.84 Long term (current) use of oral hypoglycemic drugs; I10 Essential (primary) hypertension; I48.91 Unspecified atrial fibrillation; Z79.01 Long term (current) use of anticoagulants; Z87.891 Personal history of nicotine dependence
CPT/HCPCS: 0202U; 96374; 99283; 99284; J7040; M0243; Q0244

== ENCOUNTER 2021-08-20 09:06 | Outpatient (CLI) | payer OTHER ==
[2021-08-20 15:06] LABS: CREATININE,URINE 132.1 mg/dL; MICROALBUM/CREATININE RATIO,UR 7.6 ug/mg (<30.0)
[2021-08-20 15:13] LABS: BASOPHILS % (AUTO) 0.4 %; EOSINOPHILS # (AUTO) 0.2 10^3/uL (0.0-0.7); EOSINOPHILS % (AUTO) 2.5 %; HCT - HEMATOCRIT 44.1 % (37.0-47.0); HGB - HEMOGLOBIN 14.2 g/dL (12.0-16.0); LYMPHOCYTES # (AUTO) 2.5 10^3/uL (1.5-3.5); LYMPHOCYTES % (AUTO) 33.6 %; MEAN CORPUSCULAR HEMOGLOBIN 28.1 pg (27.0-31.0); MEAN CORPUSCULAR HGB CONC 32.2 g/dL (32.0-36.0); MEAN CORPUSCULAR VOLUME 87.3 fL (81.0-99.0); MEAN PLATELET VOLUME 10.9 fL (7.9-10.8); MONOCYTES # (AUTO) 0.4 10^3/uL (0.0-1.0); MONOCYTES % (AUTO) 5.6 %; NEUTROPHILS # (AUTO) 4.2 10^3/uL (1.5-6.6); NEUTROPHILS % (AUTO) 57.6 %; PLT - PLATELET COUNT 259 10^3/uL (130-450); RED BLOOD COUNT 5.05 10^6/uL (4.20-5.40); RED CELL DISTRIBUTION WIDTH 12.6 % (12.0-15.0); WHITE BLOOD COUNT 7.3 x10^3/uL (4.8-10.8)
[2021-08-20 15:15] LABS: ALBUMIN 4.6 g/dL (3.2-5.5); ALBUMIN/GLOBULIN RATIO 1.5 (1.0-2.2); ALKALINE PHOSPHATASE 66 IU/L (42-121); ALT ALANINE AMINOTRANSFERASE 11 IU/L (10-60); AST ASPARTATE AMINOTRANSFERASE 15 IU/L (10-42); BUN - BLOOD UREA NITROGEN 14 mg/dL (6-20); CALCIUM 9.5 mg/dL (8.5-10.3); CARBON DIOXIDE - CO2 30 mmol/L (21-32); CHLORIDE 103 mmol/L (101-111); CHOLESTEROL 217 mg/dL; CREATININE 0.8 mg/dL (0.4-1.0); GFR - MDRD 79 (>89); GLUCOSE 109 mg/dL (70-100); HDL CHOLESTEROL 43 mg/dL; LDL CHOLESTEROL,CALCULATED 146 mg/dL; LDL/HDL RATIO 3.4 (<4.4); POTASSIUM 4.4 mmol/L (3.5-5.0); SODIUM 138 mmol/L (135-145); TOTAL PROTEIN 7.7 g/dL (6.7-8.2); TRIGLYCERIDES 142 mg/dL; VLDL CHOLESTEROL 28 mg/dL
[2021-08-20 15:26] LABS: THYROID STIMULATING HORMONE 0.99 uIU/mL (0.34-5.60)
[2021-08-21 12:32] LABS: ESTIMATED AVERAGE GLUCOSE 108 mg/dL (70-100); HEMOGLOBIN A1c% 5.4 % (4.27-6.07)
== END 2021-08-20 09:07 | disposition home or self-care (01) ==
LOC: LAB.N 09:06
PROVIDERS: ATTEND Internal Medicine
DX: E11.9 Type 2 diabetes mellitus without complications (principal); I48.91 Unspecified atrial fibrillation
CPT/HCPCS: 36415; 80053; 80061; 82043; 82570; 83036; 83721; 84443; 85025

== ENCOUNTER 2021-10-25 14:35 | Outpatient (CLI) | payer OTHER | END 2021-10-25 14:36 | disposition home or self-care (01) | LOC: MAC.MOP 14:35 | PROVIDERS: ATTEND Internal Medicine | DX: I48.91 Unspecified atrial fibrillation (principal) | CPT/HCPCS: 93246 ==

== ENCOUNTER 2021-11-19 10:30 | Outpatient (CLI) | payer OTHER | END 2021-11-19 10:31 | disposition home or self-care (01) | LOC: MAC.MOP 10:30 | PROVIDERS: ATTEND Internal Medicine | DX: I47.1 Supraventricular tachycardia (principal); I49.1 Atrial premature depolarization; I49.3 Ventricular premature depolarization | CPT/HCPCS: 93248 ==

== ENCOUNTER 2022-01-31 07:57 | Emergency (ER) | payer OTHER ==
[2022-01-31] MEDS ORDERED: diltiaZEM INJ 5 MG/ML VIAL IVP STA (08:32)
[2022-01-31 08:37] LABS: BASOPHILS % (AUTO) 0.6 %; EOSINOPHILS # (AUTO) 0.2 10^3/uL (0.0-0.7); EOSINOPHILS % (AUTO) 3.1 %; HCT - HEMATOCRIT 44.5 % (37.0-47.0); HGB - HEMOGLOBIN 14.1 g/dL (12.0-16.0); LYMPHOCYTES % (AUTO) 27.8 %; MEAN CORPUSCULAR HEMOGLOBIN 26.9 pg (27.0-31.0); MEAN CORPUSCULAR HGB CONC 31.7 g/dL (32.0-36.0); MEAN CORPUSCULAR VOLUME 84.8 fL (81.0-99.0); MEAN PLATELET VOLUME 9.9 fL (7.9-10.8); MONOCYTES # (AUTO) 0.4 10^3/uL (0.0-1.0); NEUTROPHILS # (AUTO) 4.4 10^3/uL (1.5-6.6); NEUTROPHILS % (AUTO) 62.1 %; PLT - PLATELET COUNT 255 10^3/uL (130-450); RED BLOOD COUNT 5.25 10^6/uL (4.20-5.40); RED CELL DISTRIBUTION WIDTH 12.7 % (12.0-15.0); WHITE BLOOD COUNT 7.1 x10^3/uL (4.8-10.8)
[2022-01-31 08:47] LABS: ALBUMIN 4.2 g/dL (3.2-5.5); ALBUMIN/GLOBULIN RATIO 1.2 (1.0-2.2); BILIRUBIN,TOTAL 0.5 mg/dL (0.2-1.0); CALCIUM 9.4 mg/dL (8.5-10.3); CREATININE 0.6 mg/dL (0.4-1.0); POTASSIUM 4.1 mmol/L (3.5-5.0); TOTAL PROTEIN 7.8 g/dL (6.7-8.2)
--- NOTE | 2022-01-31 08:49 | ED Physician Documentation ---
History of Present Illness - Stated complaint Stated Complaint: CHEST PX/IRREGULAR HR - Chief complaint Chief Complaint: Cardiac - History obtained from History obtained from: Patient - Additonal information Additional information: The patient comes to the emergency department with chief complaint of palpitations. She states that she woke up this morning with the palpitations and had felt fine yesterday. The patient has a history of atrial fibrillation that was diagnosed about 5 years ago and is on diltiazem and metoprolol for this. She states she did not take her metoprolol this morning but did take the diltiazem and so far, she has not had any effect. The patient states she has had brief episodes of her A. fib before, but has had to be cardioverted twice in the last 5 years. She states that her initial diagnosis of A. fib was 1 of those times and then about 2 years ago again. The patient states that her A. fib is paroxysmal and she is usually in a normal rhythm. She states she is due to see her waitress again and needs to make an appointment. 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 She states she has been under some stress lately but otherwise, cannot think of any triggering incident. No recent illness. No new medications or new doses. No stimulants such as decongestants. The patient states she is on warfarin and had her INR checked yesterday, which was 1.4. She states that her primary provider bumped her warfarin dosing up for this week and she is going to have it rechecked on Friday of next week, which is 6 days from now. Review of Systems Ten Systems: 10 systems reviewed and negative Constitutional: reports: Reviewed and negative Eyes: reports: Reviewed and negative Ears: reports: Reviewed and negative Nose: reports: Reviewed and negative Throat: reports: Reviewed and negative Cardiac: reports: Palpitations Respiratory: reports: Reviewed and negative GI: reports: Reviewed and negative : reports: Reviewed and negative Skin: reports: Reviewed and negative Musculoskeletal: reports: Reviewed and negative Neurologic: reports: Reviewed and negative Psychiatric: reports: Reviewed and negative Endocrine: reports: Reviewed and negative Immunocompromised: reports: Reviewed and negative PD PAST MEDICAL HISTORY - Past Medical History Cardiovascular: Hypertension, Atrial fibrillation Respiratory: None Endocrine/Autoimmune: None GI: None PRICE LISTER: Ovarian cysts : None HEENT: None Psych: None Musculoskeletal: None Derm: None - Past Surgical History Past Surgical History: Yes General: Cholecystectomy, Appendectomy /PRICE LISTER: Oophrectomy - Present Medications Home Medications: Ambulatory Orders Medication Instructions Recorded Confirmed Metoprolol Tartrate 25 mg PO BID 03/24/17 12/29/20 Dabigatran Etexilate Mesylate 150 mg PO BID 12/19/19 12/29/20 [Pradaxa] Losartan [Cozaar] 25 mg PO DAILY 12/19/19 12/29/20 Metformin HCl [Metformin ER 750 mg PO DAILY 12/29/20 12/29/20 Gastric] - Allergies Allergies/Adverse Reactions: Allergies Allergy/AdvReac Type Severity Reaction Status Date / Time amoxicillin [Amoxicillin] Allergy Hives Verified 12/19/19 13:00 meperidine HCl * Allergy vomiting Verified 12/19/19 13:00 [From Demerol] Penicillins Allergy Hives Verified 12/19/19 13:00 - Social History Does the pt smoke?: No Smoking Status: Former smoker Does the pt drink ETOH?: No Does the pt have substance abuse?: No - Immunizations Immunizations are current?: Yes - POLST Patient has POLST: No PD ED PE NORMAL - Vitals Vital signs reviewed: Yes - General General: Alert and oriented X 3, No acute distress, Well developed/nourished - HEENT HEENT: Atraumatic, PERRL, Ears normal, Moist mucous membranes - Neck Neck: Supple, no meningeal sign - Cardiac Cardiac: No murmur, Strong equal pulses, Other (Irregular rate and rhythm, tachycardic) - Respiratory Respiratory: No respiratory distress, Clear bilaterally - Abdomen Abdomen: Soft, Non tender, Non distended - Derm Derm: Normal color, Warm and dry, No rash - Extremities Extremities: No deformity, No edema - Neuro Neuro: Alert and oriented X 3, Other (Grossly intact) - Psych Psych: Normal mood, Normal affect Results - Vitals Vitals: Vital Signs - 24 hr 01/31/22 01/31/22 01/31/22 08:13 08:17 09:19 Temperature 37.2 C Heart Rate 128 H 120 H 85 Respiratory 17 21 19 Rate Blood Pressure 151/100 H 151/100 H 137/90 H O2 Saturation 99 99 100 01/31/22 01/31/22 01/31/22 09:49 10:19 10:30 Temperature Heart Rate 83 72 95 Respiratory 16 24 16 Rate Blood Pressure 142/87 H 133/101 H O2 Saturation 99 96 01/31/22 11:30 Temperature Heart Rate 78 Respiratory 19 Rate Blood Pressure 145/80 H O2 Saturation 99 Oxygen O2 Source Room air - EKG (time done) 1023 Rate: Rate (enter#) (71) Rhythm: NSR [place]: Anterior hemiblock Intervals: Normal DE QRS: LVH Ischemia: Normal ST segments Compare to prior EKG: Changed from prior EKG (Converted from atrial fibrillation, rate now normalized) Computer interpretation: Agree with computer 0806 Rate: Rate (enter#) (122) Rhythm: Atrial fibrillation [place]: Normal Intervals: Normal DE QRS: LVH Ischemia: Normal ST segments Compare to prior EKG: Old EKG unavailable Computer interpretation: Agree with computer - Labs Labs: Laboratory Tests 01/31/22 01/31/22 08:28 08:28 WBC 7.1 RBC 5.25 Hgb 14.1 Hct 44.5 MCV 84.8 MCH 26.9 L MCHC 31.7 L RDW 12.7 Plt Count 255 MPV 9.9 Neut # (Auto) 4.4 Lymph # (Auto) 2.0 [place] # (Auto) 0.4 Eos # (Auto) 0.2 Baso # (Auto) 0.0 Absolute Nucleated RBC 0.00 Nucleated RBC % 0.0 Sodium 139 Potassium 4.1 Chloride 105 Carbon Dioxide 24 Anion Gap 10.0 BUN 10 Creatinine 0.6 Estimated GFR (MDRD) 110 Glucose 148 H Calcium 9.4 Total Bilirubin 0.5 AST 17 ALT 17 Alkaline Phosphatase 56 Total Protein 7.8 Albumin 4.2 Globulin 3.6 Albumin/Globulin Ratio 1.2 Lipase 42 Procedures - Procedural sedation Sedation prep: Informed consent, Time out completed, Last meal, PE performed, ASA 2 - mild disease Sedation Medications: versed Mallampati classification: I Patient status during sedation: Drowsy, Vitals remained stable, Maintained airway, Recovered uneventfully Sedation recovery: Recovered uneventfully, Slow recovery, Back to baseline Time in sedation (Minutes): 20 - Cardioversion - Major Attempt 1 Indication: Tachyarrhythmia Risks, benefits, alternatives explained to: Pt Prep: IV, O2, quality assurance monitor, Pulse ox, Airway equip Meds: Adenocard CS via: Pads, Anterolateral Sync: Biphasic, 100j Post cardioversion rhythm: NSR Performed by: ED MD CLOUD MEDICAL DECISION MAKING - ED course Complexity details: reviewed old records, reviewed results, re-evaluated patient, considered differential, d/w patient, d/w family ED course: The patient was found to be in atrial fibrillation with RVR, and was immediately given IV fluids and an IV dose of Cardizem 25 mg. She was also given a p.o. dose of metoprolol 25 mg. The patient did become rate controlled, but was still in A. fib. Given that the patient is generally normal sinus rhythm, and was not in symptomatic A. fib yesterday, I felt that cardioversion was appropriate at this time. The patient expressed a desire for this as well, as it has worked well for her in the past. After going through the consent process as above, she was sedated with Versed and cardioverted with a single shock to normal sinus rhythm. She remained hemodynamically stable and upon recovery from sedation, was feeling much better. I felt she was stable for discharge home. I have advised her to continue on her medications as usual, and to continue the plan for increased Coumadin. We have discussed the need for follow-up with primary care and with her waitress. We have discussed the usual indications for return. Spouse is present with the patient in the ED. - Critical Care Time(min): 35 Comments: Critical care time was necessary, secondary to high probability of imminent decline or , secondary to symptomatic tachyarrhythmia in the form of atrial fibrillation with RVR. Time Includes: Direct patient care, Review records, Reassess patient, Document care, Coordinate care, Family consult for tx dec, See progress note Data interpretation: Labs, Pulse ox, Prior EKG, Cardiac output, See progress note Departure - Departure Disposition: 01 Home, Self Care Clinical Impression: Encounter for cardioversion procedure, Paroxysmal atrial fibrillation with RVR Condition: Stable Instructions: ED Afib, ED Cardioversion Electrical, ED Sedation Procedural Discon Comments: Your labs look good. You were given IV diltiazem and oral metoprolol, which did control your heart rate; however, you remained in atrial fibrillation, and so we did perform an electrical cardioversion today. You only required 1 shock and your heart responded very well to this procedure. You were treated with a sed ating medication called Versed today. This is a short acting IV medication that helps to lessen the discomfort and the memory of the procedure. Although this medication is short acting, it is important that you do not drive for the rest of the day. You should also avoid operating any power tools or heavy equipment, and should not make any important decisions. Get plenty of rest and fluids, and please make an appointment to follow-up with your waitress as soon as possible. You may take your evening medications as usual, and for now, may stay on your usual doses of all your meds. Discharge Date/Time: 01/31/22 12:06
[2022-01-31] MEDS ORDERED: METOPROLOL SUCCINATE 25 MG TABLET PO ONE (09:00)
[2022-01-31] MEDS ORDERED: MIDAZOLAM 10 MG/2 ML VIAL IVP STA (09:58)
[2022-01-31 11:47] VITALS: BP 145/80
== END 2022-01-31 12:06 | disposition home or self-care (01) ==
LOC: ED 07:57
DX: I48.20 Chronic atrial fibrillation, unspecified (principal); I10 Essential (primary) hypertension; Z87.891 Personal history of nicotine dependence
CPT/HCPCS: 36415; 80053; 83690; 85025; 92960; 93005; 96374; 99151; 99291; A9270; J2250; 94770

== ENCOUNTER 2022-02-06 09:11 | Outpatient (CLI) | payer OTHER | END 2022-02-06 09:12 | disposition home or self-care (01) | LOC: LAB.N 09:11 | PROVIDERS: ATTEND Internal Medicine | DX: Z53.9 Procedure and treatment not carried out, unspecified reason (principal) ==

== ENCOUNTER 2022-03-11 13:13 | Outpatient (CLI) | payer OTHER ==
--- NOTE | 2022-03-12 15:38 | Mammography Report ---
BILATERAL DIGITAL SCREENING MAMMOGRAM 3D/2D: 03/11/2022 CLINICAL: Routine screening. Comparison is made to exams dated: 12/30/2019 mammogram and 12/02/2019 mammogram - [facility]. Both breasts are heterogeneously dense, which may obscure small masses (category c / 51-75% glandular tissue). No significant masses, calcifications, or other findings are seen in either breast. There has been no significant interval change. IMPRESSION: NEGATIVE There is no mammographic evidence of malignancy. A 1 year screening mammogram is recommended. Based on Tyrer-Cuzick model (a risk assessment model), the patient's lifetime risk is 21.6% and her 1 0 year risk is 3.4%. If a patient has an elevated risk, a more comprehensive evaluation should be con sidered and/or a referral to a genetic counselor. The [place] [employer], [place] [employer], and NCCN Guidelines advise the consideration of Breast MRI as an adjunct to screening mammog ying in patients whose "Lifetime risk to develop breast cancer" is 20% or higher. This exam was interpreted at Station ID: [id number]. NOTE: For mammograms, a report in lay terms will be sent to the patient. Approximately 15% of breast malignancies will not be visualized mammographically. In the management of a palpable breast mass, a negative mammogram must not discourage biopsy of a clinically suspicious lesion. Electronically Signed By: Steve Mary M.D. aty/penrad:03/11/2022 17:15:51 ACR BI-RADS Category 1: Negative 3341F PARENCHYMAL PATTERN: (D) - The breast(s) demonstrate(s) heterogeneously dense fibroglandular paryanna womack. BI-RADS CATEGORY: (1) - 1 RECOMMENDATION: (ANNUAL) - Recommend routine annual screening mammography. [id number] 1 year screening LATERALITY: (B)
== END 2022-03-11 13:14 | disposition home or self-care (01) ==
LOC: DI 13:13
PROVIDERS: ATTEND Nurse Practitioner
DX: Z12.31 Encounter for screening mammogram for malignant neoplasm of breast (principal)

== ENCOUNTER 2022-03-11 13:14 | Outpatient (CLI) | payer OTHER ==
--- NOTE | 2022-03-11 17:51 | Ultrasound Report ---
PROCEDURE: Pelvic w/Transvaginal INDICATIONS: PELVIC PAIN TECHNIQUE: Real-time scanning was performed of the pelvic organs, with image documentation. Additional endovagi nal scanning was necessary due to incomplete visualization of the adnexal and endometrial structures by transabdominal scanning. COMPARISON: 03/14/2017 FINDINGS: Uterus: Uterus is anteverted and normal in size at 8.5 x 3.8 x 6.1 cm. The myometrium is homogeneou s. The endometrium measures 5 mm in combined thickness. Normal uterine vascularity. No mass. A few nabothian cysts are seen in the cervix. Ovaries: The right ovary is surgically absent. The left ovary measures 4.3 x 2.7 x 3.6 cm for a volu me of 22 cc. There are less than 12 follicles in the ovary. There is a dominant follicle measuring 2. 0 cm with lacelike septations consistent with a hemorrhagic corpus luteum. No adnexal masses are seen . Other: No pathologic free abdominal or pelvic fluid. IMPRESSION: 1. Probable left ovarian hemorrhagic corpus luteum. 2. No surrounding fluid to suggest recent rupture. 3. Prior right oophorectomy. Reviewed by: Diamante Garcia MD on 03/11/2022 4:49 PM AKST Approved by: Diamante Garcia MD on 03/11/2022 4:49 PM AKST Station ID: [id number]
== END 2022-03-11 13:15 | disposition home or self-care (01) ==
LOC: DI 13:14
PROVIDERS: ATTEND Nurse Practitioner
DX: R10.2 Pelvic and perineal pain (principal); E28.2 Polycystic ovarian syndrome; Z87.42 Personal history of other diseases of the female genital tract; Z90.721 Acquired absence of ovaries, unilateral; Z12.31 Encounter for screening mammogram for malignant neoplasm of breast

== ENCOUNTER 2022-06-27 15:48 | Outpatient (CLI) | payer OTHER ==
--- NOTE | 2022-06-27 19:17 | XRAY Report ---
PROCEDURE: Chest 2 View X-Ray INDICATIONS: COUGH TECHNIQUE: 2 views of the chest were acquired. COMPARISON: None. FINDINGS: Surgical changes and devices: None. Lungs and pleura: No pleural effusions or pneumothorax. Lungs are clear. Mediastinum: Mediastinal contours appear normal. Heart size is normal. Bones and chest wall: No suspicious bony lesions. Overlying soft tissues appear unremarkable. IMPRESSION: No acute cardiopulmonary process. Reviewed by: Chad Bingham MD on 06/27/2022 6:16 PM AKDT Approved by: Chad Bingham MD on 06/27/2022 6:16 PM AKDT Station ID: [id number]
== END 2022-06-27 23:59 | disposition home or self-care (01) ==
LOC: DI.N 15:48
PROVIDERS: ATTEND Family Medicine
DX: R05.9 Cough, unspecified (principal)

== ENCOUNTER 2022-07-20 09:26 | Outpatient (CLI) | payer OTHER ==
[2022-07-20 10:04] LABS: BASOPHILS % (AUTO) 0.4 %; EOSINOPHILS # (AUTO) 0.2 10^3/uL (0.0-0.7); EOSINOPHILS % (AUTO) 2.9 %; HCT - HEMATOCRIT 41.6 % (37.0-47.0); HGB - HEMOGLOBIN 13.4 g/dL (12.0-16.0); LYMPHOCYTES # (AUTO) 2.4 10^3/uL (1.5-3.5); LYMPHOCYTES % (AUTO) 33.3 %; MEAN CORPUSCULAR HEMOGLOBIN 27.4 pg (27.0-31.0); MEAN CORPUSCULAR HGB CONC 32.2 g/dL (32.0-36.0); MEAN CORPUSCULAR VOLUME 85.1 fL (81.0-99.0); MEAN PLATELET VOLUME 9.7 fL (7.9-10.8); MONOCYTES # (AUTO) 0.4 10^3/uL (0.0-1.0); NEUTROPHILS # (AUTO) 4.2 10^3/uL (1.5-6.6); PLT - PLATELET COUNT 233 10^3/uL (130-450); RED BLOOD COUNT 4.89 10^6/uL (4.20-5.40); RED CELL DISTRIBUTION WIDTH 13.1 % (12.0-15.0); WHITE BLOOD COUNT 7.2 x10^3/uL (4.8-10.8)
[2022-07-20 10:15] LABS: CREATININE,URINE 213.7 mg/dL; MICROALBUMIN,URINE 1.7 mg/dL (0-300.0)
[2022-07-20 10:18] LABS: ALBUMIN/GLOBULIN RATIO 1.2 (1.0-2.2); ALKALINE PHOSPHATASE 59 IU/L (42-121); ALT ALANINE AMINOTRANSFERASE 22 IU/L (10-60); AST ASPARTATE AMINOTRANSFERASE 20 IU/L (10-42); BILIRUBIN,TOTAL 0.7 mg/dL (0.2-1.0); BUN - BLOOD UREA NITROGEN 9 mg/dL (6-20); CALCIUM 8.4 mg/dL (8.5-10.3); CARBON DIOXIDE - CO2 27 mmol/L (21-32); CHLORIDE 106 mmol/L (101-111); CHOL/HDL RATIO 5.2 (<4.4); CHOLESTEROL 241 mg/dL; CREATININE 0.7 mg/dL (0.4-1.0); GFR - MDRD 91 (>89); GLUCOSE 120 mg/dL (70-100); HDL CHOLESTEROL 46 mg/dL; LDL CHOLESTEROL,CALCULATED 158 mg/dL; LDL/HDL RATIO 3.4 (<4.4); POTASSIUM 3.9 mmol/L (3.5-5.0); SODIUM 139 mmol/L (135-145); TOTAL PROTEIN 7.4 g/dL (6.7-8.2); TRIGLYCERIDES 183 mg/dL; VLDL CHOLESTEROL 37 mg/dL
[2022-07-20 10:30] LABS: THYROID STIMULATING HORMONE 1.27 uIU/mL (0.34-5.60)
[2022-07-20 21:22] LABS: ESTIMATED AVERAGE GLUCOSE 117 mg/dL (70-100); HEMOGLOBIN A1c% 5.7 % (4.27-6.07)
== END 2022-07-20 09:27 | disposition home or self-care (01) ==
LOC: LAB 09:26
PROVIDERS: ATTEND Internal Medicine
DX: E11.9 Type 2 diabetes mellitus without complications (principal); Z13.220 Encounter for screening for lipoid disorders; I48.0 Paroxysmal atrial fibrillation; I10 Essential (primary) hypertension
CPT/HCPCS: 36415; 80053; 80061; 82043; 82570; 83036; 83721; 84443; 85025

== ENCOUNTER 2022-08-12 06:04 | Emergency (ER) | payer OTHER ==
--- OUTSIDE RECORDS SUMMARY | 2022-08-12 06:27 | EXTERNAL MEDICAL SUMMARY RPT | Continuity of Care Document ---
Author Name Unknown Address [address] [place] [address] Phone Organization [place] Address [address] [phone] Phone Problems date description facility 2022-06-05 12:12 Paroxysmal atrial fibrillation [facility]
[2022-08-12 07:12] LABS: BASOPHILS % (AUTO) 0.4 %; EOSINOPHILS # (AUTO) 0.2 10^3/uL (0.0-0.7); EOSINOPHILS % (AUTO) 2.7 %; HCT - HEMATOCRIT 40.5 % (37.0-47.0); HGB - HEMOGLOBIN 13.5 g/dL (12.0-16.0); LYMPHOCYTES # (AUTO) 1.9 10^3/uL (1.5-3.5); LYMPHOCYTES % (AUTO) 25.5 %; MEAN CORPUSCULAR HGB CONC 33.3 g/dL (32.0-36.0); MEAN PLATELET VOLUME 9.9 fL (7.9-10.8); MONOCYTES # (AUTO) 0.5 10^3/uL (0.0-1.0); MONOCYTES % (AUTO) 7.1 %; NEUTROPHILS # (AUTO) 4.7 10^3/uL (1.5-6.6); NEUTROPHILS % (AUTO) 63.4 %; PLT - PLATELET COUNT 177 10^3/uL (130-450); RED BLOOD COUNT 4.82 10^6/uL (4.20-5.40); RED CELL DISTRIBUTION WIDTH 13.1 % (12.0-15.0); WHITE BLOOD COUNT 7.4 x10^3/uL (4.8-10.8)
[2022-08-12 07:21] LABS: ALBUMIN 3.5 g/dL (3.2-5.5); ALBUMIN/GLOBULIN RATIO 1.1 (1.0-2.2); BILIRUBIN,TOTAL 0.6 mg/dL (0.2-1.0); CALCIUM 8.7 mg/dL (8.5-10.3); CREATININE 0.6 mg/dL (0.4-1.0); POTASSIUM 3.8 mmol/L (3.5-5.0); TOTAL PROTEIN 6.8 g/dL (6.7-8.2)
--- NOTE | 2022-08-12 07:24 | ED Physician Documentation ---
History of Present Illness - Stated complaint Stated Complaint: HEART PALP - Chief complaint Chief Complaint: Cardiac - History obtained from History obtained from: Patient - Additonal information Additional information: The patient comes to the emergency department chief complaint of palpitations that woke her up from sleep around 4:00 this morning. She states that just felt as though her heart was beating fast and irregularly. She has a history of atrial fibrillation which over the years has required 3 cardioversions. She takes metoprolol and Xarelto and follows with cardiology for this. The patient states that she thinks she may have converted on her own because she no longer feels the palpitations. She denies any chest pain, shortness of breath, or nausea. She has not noticed any swelling and was not lightheaded. She feels normal now. No other complaints at this time. 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 : None HEENT: None Psych: None Musculoskeletal: None Derm: None - Past Surgical History Past Surgical History: Yes General: Cholecystectomy, Appendectomy /GAMBRELER: Oophrectomy - Present Medications Home Medications: Ambulatory Orders Medication Instructions Recorded Confirmed Metoprolol Tartrate 25 mg PO BID 03/24/17 12/29/20 Dabigatran Etexilate Mesylate 150 mg PO BID 12/19/19 12/29/20 [Pradaxa] Losartan [Cozaar] 25 mg PO DAILY 12/19/19 12/29/20 Metformin HCl [Metformin ER 750 mg PO DAILY 12/29/20 12/29/20 Gastric] - Allergies Allergies/Adverse Reactions: Allergies Allergy/AdvReac Type Severity Reaction Status Date / Time amoxicillin [Amoxicillin] Allergy Hives Verified 12/19/19 13:00 meperidine HCl * Allergy vomiting Verified 12/19/19 13:00 [From Demerol] Penicillins Allergy Hives Verified 12/19/19 13:00 - Social History Does the pt smoke?: No Smoking Status: Never smoker Does the pt drink ETOH?: No Does the pt have substance abuse?: No - Immunizations Immunizations are current?: Yes - POLST Patient has POLST: No PD ED PE NORMAL - Vitals Vital signs reviewed: Yes - General General: Alert and oriented X 3, No acute distress, Well developed/nourished - HEENT HEENT: Atraumatic, PERRL, EOMI, Moist mucous membranes - Neck Neck: Supple, no meningeal sign - Cardiac Cardiac: RRR, No murmur - Respiratory Respiratory: No respiratory distress, Clear bilaterally - Abdomen Abdomen: Soft, Non tender, Non distended - Derm Derm: Normal color, Warm and dry, No rash - Extremities Extremities: No deformity, No edema - Neuro Neuro: Alert and oriented X 3 - Psych Psych: Normal mood, Normal affect Results - Vitals Vitals: Vital Signs - 24 hr 08/12/22 08/12/22 06:11 06:30 Temperature 36.7 C Heart Rate 91 72 Respiratory 18 19 Rate Blood Pressure 158/83 H 144/86 H O2 Saturation 99 100 Oxygen O2 Source Room air - EKG (time done) 0609 EKG releavant findings:: EKG personally interpreted by author of this note. Relevant findings are: Rate: Rate (enter#) (93) Rhythm: NSR, LAE [place]: Normal, Anterior hemiblock Intervals: Normal [place] QRS: LVH Ischemia: Normal ST segments, Non specific changes Compare to prior EKG: Old EKG unavailable Computer interpretation: Agree with computer - Labs Labs: Laboratory Tests 08/12/22 08/12/22 07:00 07:00 WBC 7.4 RBC 4.82 Hgb 13.5 Hct 40.5 MCV 84.0 MCH 28.0 MCHC 33.3 RDW 13.1 Plt Count 177 MPV 9.9 Neut # (Auto) 4.7 Lymph # (Auto) 1.9 [place] # (Auto) 0.5 Eos # (Auto) 0.2 Baso # (Auto) 0.0 Absolute Nucleated RBC 0.00 Nucleated RBC % 0.0 Sodium 140 Potassium 3.8 Chloride 108 Carbon Dioxide 28 Anion Gap 4.0 L BUN 11 Creatinine 0.6 Estimated GFR (MDRD) 109 Glucose 180 H Calcium 8.7 Total Bilirubin 0.6 AST 11 ALT 18 Alkaline Phosphatase 53 Total Protein 6.8 Albumin 3.5 Globulin 3.3 Albumin/Globulin Ratio 1.1 PD Medical Decision Making - ED course Complexity details: reviewed old records, reviewed results, re-evaluated patient, considered differential, d/w patient ED course: The patient was placed on the bus driver/monitor and found to be in normal sinus rhythm here in the emergency department. EKG also demonstrated normal sinus rhythm. The patient was worked up with CBC and ER abdominal panel, both of which were unremarkable. I felt the patient was stable for discharge home. She was now asymptomatic and demonstrably in a normal rhythm. We have discussed home management of the symptoms and the usual indications for follow-up and return.
[2022-08-12 07:39] VITALS: BP 145/83
== END 2022-08-12 07:38 | disposition home or self-care (01) ==
LOC: ED 06:04
DX: R00.2 Palpitations (principal); Z86.79 Personal history of other diseases of the circulatory system
CPT/HCPCS: 36415; 80053; 85025; 93005; 99283; 99284

== ENCOUNTER 2022-09-30 10:07 | Outpatient (CLI) | payer OTHER ==
--- NOTE | 2022-09-30 10:38 | SLEEP CARE CONSULTATION ---
Information from patient questionnaire entered by Jewel Otoole. I have reviewed and concur with the information entered by Jewel Otoole. This document represents the service I personally performed and the decisions made by me, Rama Arroyo MD, [facility]. History of Present Illness Service Date and Time: 09/30/2022 1007 Previous diagnosis: Mild, Obstructive Sleep Apnea-Hypopnea Syndrome AHI: 7.3 (in 2020(9.9 in 2017, 3.6 in 2014) Reason for follow up: annual (LAST SEEN 09/2020) Equipment type: CPAP (STEPHEN DREAM STATION) Equipment obtained from: [employer] (getting supplies as needed) Mask style: Nasal Prior sleep studies: Yes Year and Where: 2020(HST), 2016 and 2014(PSG) - [facility] Type of Sleep Study: Home sleep study HPI additional information: Ms. Carlos returned today for follow up of nasal CPAP therapy. She was diagnosed with mild obstructive sleep apnea-hypopnea syndrome. The patient went to [facility] for the equipment and was fitted with a [id number] nasal cushion mask. She reports using the [employer] DreamStation 1 autoCPAP nightly and all through the night. The compliance report shows usage in 177 nights out of the past 180 nights, averaging 7 hours a night. She complained of no particular problem with the device such as soreness on the face, dry nose, epistaxis, nasal congestion or headache. She thinks that the pressure of 7 - 9 cmH2O is comfortable. On the CPAP therapy she notices improvement in her sleep quality, and that she wakes up feeling fresher in the morning and more awake/alert during the day. The Falkner Sleepiness Scale score 5. Her notices no snore at all. The average residual AHI is 1.0; and air leak, 1 second. The 90th percentile pressure is 8.5 cmH2O. Sleep Study - Results Type of Sleep Study: Home sleep study Prior sleep studies: Yes Year and Where: 2020(HST), 2016 and 2014(PSG) - [facility] CPAP Compliance Data - Data Reviewed with Patient Average duration of nightly device use: 6HRS 57MINS 47SEC Compliance rate %: 95.6 (03/30/22-09/25/22) Current pressure setting (cmH2O): 7-9 Average residual AHI: 1.0 Subjective Initial Falkner Sleepiness Scale score: 9 (in 2015) Current Falkner Sleepiness Scale score: 5 (09/30/22) Allergies and Home Medications Allergy and home medication list: Allergies amoxicillin [Amoxicillin] Allergy (Verified 09/27/22 08:41) Hives meperidine HCl * [From Demerol] Allergy (Verified 09/27/22 08:41) vomiting Penicillins Allergy (Verified 09/27/22 08:41) Hives Review of Systems Review of systems same as previous: Yes Physical Exam Vital signs obtained and entered by: JEWEL Ramos MA Blood Pressure: 124/70 (LEFT WRIST) Cuff size: regular Heart Rate: 67 O2 Saturation: 98 Height: 5 ft 6 in Weight: 306 lb Body Mass Index: 49.4 BMI Classification: Morbidly Obese Impression and Plan IMPRESSION: 1. Obstructive Sleep Apnea-Hypopnea Syndrome, mild (AHI was 9.9 in 2017), with the patient doing well on nasal CPAP therapy. She has excellent compliance and significant clinical improvement. The current pressure appears effective and comfortable. Overall, she is very satisfied with treatment and plans to continue with it long-term. No adjustment is necessary today. The patient would like to switch her suppler to [employer] PLAN: 1. Continue with nasal CPAP therapy with 14 -17 cmH2O. 2. Try to lose weight 3. Prescription made for supplies and sent to [employer] 4. [place] her [employer] DreamStation autoCPAP for a replacement. 5. Return in one year for follow up or earlier if there is any problem with the treatment. Counseling Topics: Weight control Prescriptions: Device supplies ([employer]) Follow up with Sleep Care in: 1 year Visit Type: In Office Time Spent with Patient (minutes): 15 Provider Statement: I spent 100% of the Face to Face Visit with the patient with greater than 50% spent counseling the patient and coordination of care.
[2022-09-30 10:48] VITALS: BP 124/70; O2SAT 98
== END 2022-09-30 10:08 | disposition home or self-care (01) ==
LOC: SC 10:07
PROVIDERS: ATTEND Internal Medicine Pulmonary Disease
DX: G47.33 Obstructive sleep apnea (adult) (pediatric) (principal); E66.01 Morbid (severe) obesity due to excess calories; Z68.42 Body mass index [BMI] 45.0-49.9, adult
CPT/HCPCS: 99212

== ENCOUNTER 2023-01-07 06:18 | Emergency (ER) | payer OTHER ==
[2023-01-07] MEDS ORDERED: diltiaZEM INJ 5 MG/ML VIAL IVP STA (06:30)
[2023-01-07] MEDS ORDERED: SODIUM CHLORIDE 0.9% 1,000 ML IV STA ×2 (06:30→09:19)
--- NOTE | 2023-01-07 06:46 | ED Physician Documentation ---
History of Present Illness - Stated complaint Stated Complaint: HEART PX - History obtained from History obtained from: Patient - Additonal information Additional information: The patient comes to the emergency department chief complaint of palpitations that started early this morning. The patient has a history of paroxysmal atrial fibrillation for which she takes metoprolol and Xarelto regularly and diltiazem as needed when she goes into RVR. The patient states that she went to bed feeling fine last night, and noticed symptoms upon awakening. She denies any chest pain. No nausea or lightheadedness. The patient denies any other c omplaints at this time. 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 : None HEENT: None Psych: None Musculoskeletal: None Derm: None - Past Surgical History Past Surgical History: Yes General: Cholecystectomy, Appendectomy /CHRISTIAN EDUCATION DIRECTOR: Oophrectomy - Present Medications Home Medications: Ambulatory Orders Medication Instructions Recorded Confirmed Metoprolol Tartrate 25 mg PO BID 03/24/17 09/30/22 Dabigatran Etexilate Mesylate 150 mg PO BID 12/19/19 09/30/22 [Pradaxa] Losartan [Cozaar] 25 mg PO DAILY 12/19/19 09/30/22 Metformin HCl [Metformin ER 750 mg PO DAILY 12/29/20 09/30/22 Gastric] - Allergies Allergies/Adverse Reactions: Allergies Allergy/AdvReac Type Severity Reaction Status Date / Time amoxicillin [Amoxicillin] Allergy Hives Verified 09/30/22 10:19 meperidine HCl * Allergy vomiting Verified 09/30/22 10:19 [From Demerol] Penicillins Allergy Hives Verified 09/30/22 10:19 - Social History Does the pt smoke?: No Smoking Status: Never smoker Does the pt drink ETOH?: No Does the pt have substance abuse?: No - Immunizations Immunizations are current?: Yes - POLST Patient has POLST: No PD ED PE NORMAL - Vitals Vital signs reviewed: Yes - General General: Alert and oriented X 3, No acute distress, Well developed/nourished - HEENT HEENT: Atraumatic, PERRL, EOMI, Moist mucous membranes - Neck Neck: Supple, no meningeal sign - Cardiac Cardiac: No murmur, Other (Irregular rhythm, tachycardic rate,) - Respiratory Respiratory: No respiratory distress, Clear bilaterally - Abdomen Abdomen: Soft, Non tender, Non distended - Derm Derm: Normal color, Warm and dry, No rash - Extremities Extremities: No deformity - Neuro Neuro: Alert and oriented X 3, Other (Grossly intact) - Psych Psych: Normal mood, Normal affect Results - Vitals Vitals: Vital Signs - 24 hr 01/07/23 06:34 Temperature 37 C Heart Rate 125 H Respiratory 17 Rate Blood Pressure 147/112 H O2 Saturation 98 Oxygen O2 Source Room air - EKG (time done) 0625 EKG releavant findings:: EKG personally interpreted by author of this note. Relevant findings are: Rate: Rate (enter#) (138) Rhythm: Atrial fibrillation [place]: LAD QRS: Normal Ischemia: Normal ST segments Compare to prior EKG: Old EKG unavailable PD Medical Decision Making - ED course Complexity details: reviewed old records, reviewed results, re-evaluated patient, considered differential, d/w patient ED course: The patient was given a liter of 0.9 normal saline and an IV dose of Cardizem initially. Laboratory studies were obtained including CBC, ER abdominal panel, and troponin. These are pending at this time. EKG showed atrial fibrillation with RVR, no signs of ischemia. The patient came in nearly at the end of my shift and as such, was pending everything except EKG upon signout to the oncoming emergency physician Dr. Washburn.
[2023-01-07 06:52] LABS: BASOPHILS # (AUTO) 0.1 10^3/uL (0.0-0.1); BASOPHILS % (AUTO) 0.7 %; EOSINOPHILS # (AUTO) 0.2 10^3/uL (0.0-0.7); EOSINOPHILS % (AUTO) 2.8 %; HCT - HEMATOCRIT 42.5 % (37.0-47.0); HGB - HEMOGLOBIN 13.8 g/dL (12.0-16.0); LYMPHOCYTES # (AUTO) 2.2 10^3/uL (1.5-3.5); LYMPHOCYTES % (AUTO) 29.2 %; MEAN CORPUSCULAR HEMOGLOBIN 27.8 pg (27.0-31.0); MEAN CORPUSCULAR HGB CONC 32.5 g/dL (32.0-36.0); MEAN CORPUSCULAR VOLUME 85.7 fL (81.0-99.0); MEAN PLATELET VOLUME 10.1 fL (7.9-10.8); MONOCYTES # (AUTO) 0.6 10^3/uL (0.0-1.0); MONOCYTES % (AUTO) 7.8 %; NEUTROPHILS # (AUTO) 4.4 10^3/uL (1.5-6.6); NEUTROPHILS % (AUTO) 59.2 %; PLT - PLATELET COUNT 204 10^3/uL (130-450); RED BLOOD COUNT 4.96 10^6/uL (4.20-5.40); RED CELL DISTRIBUTION WIDTH 12.3 % (12.0-15.0); WHITE BLOOD COUNT 7.4 x10^3/uL (4.8-10.8)
[2023-01-07 07:08] LABS: ALBUMIN 4.2 g/dL (3.2-5.5); ALBUMIN/GLOBULIN RATIO 1.7 (1.0-2.2); BILIRUBIN,TOTAL 0.7 mg/dL (0.2-1.0); CALCIUM 8.9 mg/dL (8.5-10.3); CREATININE 0.6 mg/dL (0.6-1.3); POTASSIUM 4.1 mmol/L (3.5-4.5); TOTAL PROTEIN 6.7 g/dL (6.4-8.9)
[2023-01-07] MEDS ORDERED: PROPOFOL 200 MG/20 ML VIAL IVP STA (09:19)
[2023-01-07] MEDS ORDERED: KETOROLAC 15 MG/ML VIAL IVP STA (09:46)
--- NOTE | 2023-01-07 10:23 | ED Physician Documentation ---
ED Addendum - Addendum Addendum: 01/07/23 10:19 The patient persisted in atrial fibrillation despite slowing of the heart rate down to 100 or less with IV medications. She wanted to give it a little bit of time so we waited over the course of a couple of hours and she remained in A- fib. She has had cardioversions a couple of times in the past. Discussion on treatment options and a shared decision was to do cardioversion as she does feel uncomfortable when it is in the fibrillation. Procedure permit was signed after discussion with both her and her . Her was present for this. We did do the cardioversion with successful cardioversion at 200 J given a high BMI. Present for the procedure was respiratory therapy, nursing and myself with respiratory equipment and monitoring of oxygen and end-tidal CO2 and suction and [id number] available. The patient had not eaten this morning. She had a wide open mouth when testing Mallampati. She does not have significant comorbidities. The patient was given propofol and incremental amounts until sedate appropriately with still minor verbal response to tactile stimulus. Oxygenation remained good. She was cardioverted at 200 J into sinus rhythm. She recovered without any problems from the procedure back to baseline. A total of 90 mg of propofol was given. Repeat EKG showed a normal sinus rhythm. We discussed treatment. She does have a house carpenter helper with Dr. Marquez while in [facility]. She is to contact their office and set a follow-up appointment. Meanwhile I would suggest she increase her metoprolol from 25 to 50 mg daily and discussed with the house carpenter helper office the duration for this. Disposition: The patient discharged home in stable condition Diagnoses: Paroxysmal atrial fibrillation 2. Cardioversion in ER
[2023-01-07 10:51] VITALS: BP 121/103; O2SAT 100
== END 2023-01-07 10:55 | disposition home or self-care (01) ==
LOC: ED 06:18
DX: I48.0 Paroxysmal atrial fibrillation (principal); I10 Essential (primary) hypertension; Z79.01 Long term (current) use of anticoagulants; Z79.899 Other long term (current) drug therapy; Z79.84 Long term (current) use of oral hypoglycemic drugs
CPT/HCPCS: 36415; 80053; 83690; 85025; 92960; 93005; 99152; 99284

== ENCOUNTER 2023-01-11 06:43 | Outpatient (CLI) | payer OTHER | END 2023-01-11 06:44 | disposition home or self-care (01) | LOC: LAB 06:43 | PROVIDERS: ATTEND Internal Medicine | DX: E11.9 Type 2 diabetes mellitus without complications (principal); I10 Essential (primary) hypertension ==

== ENCOUNTER 2023-01-13 08:11 | Outpatient (CLI) | payer OTHER ==
[2023-01-13 09:01] LABS: BASOPHILS % (AUTO) 0.5 %; EOSINOPHILS # (AUTO) 0.2 10^3/uL (0.0-0.7); EOSINOPHILS % (AUTO) 2.6 %; HCT - HEMATOCRIT 41.2 % (37.0-47.0); HGB - HEMOGLOBIN 13.6 g/dL (12.0-16.0); LYMPHOCYTES # (AUTO) 2.1 10^3/uL (1.5-3.5); MEAN CORPUSCULAR HEMOGLOBIN 28.4 pg (27.0-31.0); MEAN PLATELET VOLUME 9.9 fL (7.9-10.8); MONOCYTES # (AUTO) 0.5 10^3/uL (0.0-1.0); MONOCYTES % (AUTO) 6.3 %; NEUTROPHILS # (AUTO) 4.5 10^3/uL (1.5-6.6); NEUTROPHILS % (AUTO) 61.3 %; PLT - PLATELET COUNT 203 10^3/uL (130-450); RED BLOOD COUNT 4.79 10^6/uL (4.20-5.40); RED CELL DISTRIBUTION WIDTH 12.3 % (12.0-15.0); WHITE BLOOD COUNT 7.4 x10^3/uL (4.8-10.8)
[2023-01-13 09:18] LABS: ALBUMIN 4.3 g/dL (3.2-5.5); ALBUMIN/GLOBULIN RATIO 1.7 (1.0-2.2); ALKALINE PHOSPHATASE 77 IU/L (42-121); ALT ALANINE AMINOTRANSFERASE 49 IU/L (10-60); AST ASPARTATE AMINOTRANSFERASE 31 IU/L (10-42); BILIRUBIN,TOTAL 0.6 mg/dL (0.2-1.0); BUN - BLOOD UREA NITROGEN 11 mg/dL (6-20); CARBON DIOXIDE - CO2 26 mmol/L (21-32); CHLORIDE 104 mmol/L (101-111); CHOL/HDL RATIO 5.5 (<4.4); CHOLESTEROL 192 mg/dL; CREATININE 0.6 mg/dL (0.6-1.3); GFR - MDRD 109 (>89); GLUCOSE 200 mg/dL (74-104); HDL CHOLESTEROL 35 mg/dL; LDL CHOLESTEROL,CALCULATED 127 mg/dL; LDL/HDL RATIO 3.6 (<4.4); POTASSIUM 3.9 mmol/L (3.5-4.5); SODIUM 135 mmol/L (135-145); TOTAL PROTEIN 6.9 g/dL (6.4-8.9); TRIGLYCERIDES 151 mg/dL (48-352); VLDL CHOLESTEROL 30 mg/dL
[2023-01-13 09:25] LABS: CREATININE,URINE 172.9 mg/dL; MICROALBUM/CREATININE RATIO,UR 10.4 ug/mg (<30.0); MICROALBUMIN,URINE 1.8 mg/dL
[2023-01-13 11:40] LABS: ESTIMATED AVERAGE GLUCOSE 134 mg/dL (70-100); HEMOGLOBIN A1c% 6.3 % (4.27-6.07)
== END 2023-01-13 08:12 | disposition home or self-care (01) ==
LOC: LAB 08:11
PROVIDERS: ATTEND Internal Medicine
DX: E11.9 Type 2 diabetes mellitus without complications (principal); I10 Essential (primary) hypertension
CPT/HCPCS: 36415; 80053; 80061; 82043; 82570; 83036; 83721; 85025

== ENCOUNTER 2023-08-07 08:00 | Outpatient (CLI) | payer OTHER ==
[2023-08-07 17:17] LABS: INFLUENZA A- RESP PCR PANEL NOT DETECTED; INFLUENZA B - RESP PCR PANEL NOT DETECTED; RSV- RESP PCR PANEL NOT DETECTED; SARS-CoV-2 -RESP PCR PANEL NOT DETECTED
== END 2023-08-07 23:59 | disposition home or self-care (01) ==
LOC: LAB 08:00
PROVIDERS: ATTEND Emergency Medicine
DX: J40 Bronchitis, not specified as acute or chronic (principal)
CPT/HCPCS: 87637

== ENCOUNTER 2023-08-07 11:05 | Outpatient (CLI) | payer OTHER ==
--- NOTE | 2023-08-07 12:53 | XRAY Report ---
PROCEDURE: Chest 2V INDICATIONS: BRONCHITIS TECHNIQUE: 2 views of the chest were acquired. COMPARISON: Chest x-ray, 06/27/2022. FINDINGS: Surgical changes and devices: None. Lungs and pleura: Chronic interstitial prominence. No focal consolidation. No pleural effusions or pn eumothorax. Mediastinum: Mediastinal contours appear normal. Heart size is normal. Bones and chest wall: No suspicious bony lesions. Overlying soft tissues appear unremarkable. IMPRESSION: No acute cardiopulmonary process. Reviewed by: Yvonne Araiza MD on 08/07/2023 12:51 PM PDT Approved by: Yvonne Araiza MD on 08/07/2023 12:51 PM PDT Station ID: [id number]
== END 2023-08-07 11:06 | disposition home or self-care (01) ==
LOC: DI 11:05
PROVIDERS: ATTEND Emergency Medicine
DX: J40 Bronchitis, not specified as acute or chronic (principal)
CPT/HCPCS: 87637

== ENCOUNTER 2023-08-12 07:56 | Outpatient (CLI) | payer OTHER ==
[2023-08-12 08:24] LABS: BASOPHILS % (AUTO) 0.5 %; EOSINOPHILS # (AUTO) 0.3 10^3/uL (0.0-0.7); EOSINOPHILS % (AUTO) 3.3 %; HCT - HEMATOCRIT 38.7 % (37.0-47.0); HGB - HEMOGLOBIN 12.7 g/dL (12.0-16.0); LYMPHOCYTES % (AUTO) 25.2 %; MEAN CORPUSCULAR HEMOGLOBIN 27.7 pg (27.0-31.0); MEAN CORPUSCULAR HGB CONC 32.8 g/dL (32.0-36.0); MEAN CORPUSCULAR VOLUME 84.5 fL (81.0-99.0); MEAN PLATELET VOLUME 9.9 fL (7.9-10.8); MONOCYTES # (AUTO) 0.4 10^3/uL (0.0-1.0); MONOCYTES % (AUTO) 5.3 %; NEUTROPHILS # (AUTO) 5.3 10^3/uL (1.5-6.6); NEUTROPHILS % (AUTO) 65.2 %; PLT - PLATELET COUNT 208 10^3/uL (130-450); RED BLOOD COUNT 4.58 10^6/uL (4.20-5.40); RED CELL DISTRIBUTION WIDTH 12.8 % (12.0-15.0); WHITE BLOOD COUNT 8.1 x10^3/uL (4.8-10.8)
[2023-08-12 08:45] LABS: MICROALBUM/CREATININE RATIO,UR 41.8 ug/mg (<30.0); MICROALBUMIN,URINE 7.1 mg/dL
[2023-08-12 08:46] LABS: ALBUMIN/GLOBULIN RATIO 1.4 (1.0-2.2); BILIRUBIN,TOTAL 1.4 mg/dL (0.2-1.0); CALCIUM 8.9 mg/dL (8.5-10.3); CREATININE 0.7 mg/dL (0.6-1.3); POTASSIUM 3.6 mmol/L (3.5-4.5); TOTAL PROTEIN 6.9 g/dL (6.4-8.9)
[2023-08-12 09:01] LABS: THYROID STIMULATING HORMONE 1.03 uIU/mL (0.34-5.60)
[2023-08-12 09:56] LABS: ESTIMATED AVERAGE GLUCOSE 203 mg/dL (70-100); HEMOGLOBIN A1c% 8.7 % (4.27-6.07)
== END 2023-08-12 07:57 | disposition home or self-care (01) ==
LOC: LAB 07:56
PROVIDERS: ATTEND Internal Medicine
DX: I10 Essential (primary) hypertension (principal); E11.9 Type 2 diabetes mellitus without complications; I48.0 Paroxysmal atrial fibrillation
CPT/HCPCS: 36415; 80053; 82043; 82570; 83036; 84443; 85025

== ENCOUNTER 2023-10-02 08:00 | Outpatient (CLI) | payer OTHER | END 2023-10-02 23:59 | disposition home or self-care (01) | LOC: LAB.WCP 08:00 | PROVIDERS: ATTEND Physician Assistant Medical | DX: R35.0 Frequency of micturition (principal) | CPT/HCPCS: 87077; 87086; 87181 ==

== ENCOUNTER 2023-10-18 10:14 | Outpatient (CLI) | payer OTHER ==
[2023-10-18 10:51] LABS: BASOPHILS % (AUTO) 0.4 %; EOSINOPHILS # (AUTO) 0.2 10^3/uL (0.0-0.7); EOSINOPHILS % (AUTO) 2.3 %; HCT - HEMATOCRIT 42.3 % (37.0-47.0); HGB - HEMOGLOBIN 14.5 g/dL (12.0-16.0); LYMPHOCYTES # (AUTO) 2.9 10^3/uL (1.5-3.5); LYMPHOCYTES % (AUTO) 31.2 %; MEAN CORPUSCULAR HEMOGLOBIN 28.4 pg (27.0-31.0); MEAN CORPUSCULAR HGB CONC 34.3 g/dL (32.0-36.0); MEAN CORPUSCULAR VOLUME 82.8 fL (81.0-99.0); MEAN PLATELET VOLUME 10.5 fL (7.9-10.8); MONOCYTES # (AUTO) 0.7 10^3/uL (0.0-1.0); MONOCYTES % (AUTO) 7.1 %; NEUTROPHILS # (AUTO) 5.4 10^3/uL (1.5-6.6); NEUTROPHILS % (AUTO) 58.7 %; PLT - PLATELET COUNT 194 10^3/uL (130-450); RED BLOOD COUNT 5.11 10^6/uL (4.20-5.40); RED CELL DISTRIBUTION WIDTH 12.9 % (12.0-15.0); WHITE BLOOD COUNT 9.1 x10^3/uL (4.8-10.8)
[2023-10-18 11:04] LABS: ALBUMIN 4.2 g/dL (3.2-5.5); ALBUMIN/GLOBULIN RATIO 1.4 (1.0-2.2); BILIRUBIN,TOTAL 1.5 mg/dL (0.2-1.0); CALCIUM 8.8 mg/dL (8.5-10.3); CREATININE 0.7 mg/dL (0.6-1.3); POTASSIUM 3.6 mmol/L (3.5-4.5); TOTAL PROTEIN 7.1 g/dL (6.4-8.9)
[2023-10-18 11:52] LABS: ESTIMATED AVERAGE GLUCOSE 301 mg/dL (70-100); HEMOGLOBIN A1c% 12.1 % (4.27-6.07)
== END 2023-10-18 10:15 | disposition home or self-care (01) ==
LOC: LAB 10:14
PROVIDERS: ATTEND Emergency Medicine
DX: R73.9 Hyperglycemia, unspecified (principal)
CPT/HCPCS: 36415; 80053; 82150; 83036; 83690; 85025

== ENCOUNTER 2023-10-19 20:41 | Emergency (ER) | payer OTHER ==
[2023-10-19 21:25] LABS: VBG BASE EXCESS -1.2 mmol/L (-2 - +2); VBG HCO3 24.2 mmol/L (23-28); VBG OXYGEN SATURATION 62.8 % (60-80); VBG PCO2 42.7 mmHg (41-51); VBG PH 7.371 (7.31-7.41); VBG PO2 30.2 mmHg (25-47); VBG TOTAL CO2 25.5 mmol/L (24-29)
[2023-10-19 21:26] LABS: BASOPHILS % (AUTO) 0.3 %; EOSINOPHILS # (AUTO) 0.2 10^3/uL (0.0-0.7); EOSINOPHILS % (AUTO) 2.4 %; HCT - HEMATOCRIT 43.4 % (37.0-47.0); HGB - HEMOGLOBIN 14.4 g/dL (12.0-16.0); LYMPHOCYTES # (AUTO) 2.7 10^3/uL (1.5-3.5); LYMPHOCYTES % (AUTO) 31.7 %; MEAN CORPUSCULAR HEMOGLOBIN 27.9 pg (27.0-31.0); MEAN CORPUSCULAR HGB CONC 33.2 g/dL (32.0-36.0); MEAN CORPUSCULAR VOLUME 84.1 fL (81.0-99.0); MEAN PLATELET VOLUME 11.1 fL (7.9-10.8); MONOCYTES # (AUTO) 0.6 10^3/uL (0.0-1.0); MONOCYTES % (AUTO) 6.9 %; NEUTROPHILS % (AUTO) 58.5 %; PLT - PLATELET COUNT 184 10^3/uL (130-450); RED BLOOD COUNT 5.16 10^6/uL (4.20-5.40); RED CELL DISTRIBUTION WIDTH 12.7 % (12.0-15.0); WHITE BLOOD COUNT 8.6 x10^3/uL (4.8-10.8)
[2023-10-19] MEDS: SODIUM CHLORIDE 0.9% 1,000 ML IV STA (21:35)
[2023-10-19 21:43] LABS: ALBUMIN 3.9 g/dL (3.2-5.5); ALBUMIN/GLOBULIN RATIO 1.4 (1.0-2.2); ALKALINE PHOSPHATASE 96 IU/L (42-121); ALT ALANINE AMINOTRANSFERASE 90 IU/L (10-60); AST ASPARTATE AMINOTRANSFERASE 56 IU/L (10-42); BILIRUBIN,TOTAL 0.9 mg/dL (0.2-1.0); BUN - BLOOD UREA NITROGEN 10 mg/dL (6-20); CALCIUM 9.1 mg/dL (8.5-10.3); CARBON DIOXIDE - CO2 29 mmol/L (21-32); CHLORIDE 99 mmol/L (101-111); CREATININE 0.8 mg/dL (0.6-1.3); GFR - MDRD 78 (>89); GLUCOSE 360 mg/dL (74-104); MAGNESIUM 1.5 mg/dL (1.7-2.3); PHOSPHORUS 2.8 mg/dL (2.5-5.0); POTASSIUM 4.1 mmol/L (3.5-4.5); SODIUM 133 mmol/L (135-145); TOTAL PROTEIN 6.7 g/dL (6.4-8.9)
--- NOTE | 2023-10-19 21:54 | ED Physician Documentation ---
History of Present Illness - Stated complaint Stated Complaint: HIGH BLOOD SUGAR - Chief complaint Chief Complaint: General - History obtained from History obtained from: Patient - Additonal information Additional information: She has been diabetic for a few years, and was maintained on metformin. Recently had glimepiride added. She is never been on insulin. Over the last 6 weeks or so she is noted brain fog, fuzzy vision, polyuria and polydipsia and just feeling out of it. 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 It was 2.2 a couple days ago. 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 : None HEENT: None Psych: None Musculoskeletal: None Derm: None - Past Surgical History Past Surgical History: Yes General: Cholecystectomy, Appendectomy /TICKET ATTENDANT: Oophrectomy - Present Medications Home Medications: Ambulatory Orders Medication Instructions Recorded Confirmed Metoprolol Tartrate 25 mg PO BID 03/24/17 09/30/22 Dabigatran Etexilate Mesylate 150 mg PO BID 12/19/19 09/30/22 [Pradaxa] Losartan [Cozaar] 25 mg PO DAILY 12/19/19 09/30/22 Metformin HCl [Metformin ER 750 mg PO DAILY 12/29/20 09/30/22 Gastric] Insulin Glargine [Lantus Solostar] 10 unit SUBQ QPM #3 ea 10/19/23 Pen Needle, Diabetic [Pen Needle] 1 each MC DAILY #120 ea 10/19/23 - Allergies Allergies/Adverse Reactions: Allergies Allergy/AdvReac Type Severity Reaction Status Date / Time amoxicillin [Amoxicillin] Allergy Hives Verified 10/19/23 20:55 meperidine HCl * Allergy vomiting Verified 10/19/23 20:55 [From Demerol] Penicillins Allergy Hives Verified 10/19/23 20:55 - Social History Does the pt smoke?: No Smoking Status: Never smoker Does the pt drink ETOH?: No Does the pt have substance abuse?: No - Immunizations Immunizations are current?: Yes - POLST Patient has POLST: No PD ED PE NORMAL - Vitals Vital signs reviewed: Yes - General General: Alert and oriented X 3, No acute distress - Cardiac Cardiac: RRR, No murmur - Respiratory Respiratory: No respiratory distress, Clear bilaterally - Abdomen Abdomen: Non tender - Neuro Neuro: Alert and oriented X 3, Normal speech Results - Vitals Vitals: Vital Signs - 24 hr 10/19/23 10/19/23 20:47 21:36 Temperature 36.4 C L Heart Rate 78 78 Respiratory 16 Rate Blood Pressure 155/114 H O2 Saturation 98 Oxygen O2 Source Room air - Labs Labs: Laboratory Tests 10/19/23 10/19/23 10/19/23 20:50 21:19 21:19 WBC 8.6 RBC 5.16 Hgb 14.4 Hct 43.4 MCV 84.1 MCH 27.9 MCHC 33.2 RDW 12.7 Plt Count 184 MPV 11.1 H Neut # (Auto) 5.0 Lymph # (Auto) 2.7 [place] # (Auto) 0.6 Eos # (Auto) 0.2 Baso # (Auto) 0.0 Absolute Nucleated RBC 0.00 Nucleated RBC % 0.0 VBG pH VBG pCO2 VBG pO2 VBG HCO3 VBG Total CO2 VBG O2 Saturation VBG Base Excess Sodium 133 L Potassium 4.1 Chloride 99 L Carbon Dioxide 29 Anion Gap 5.0 L BUN 10 Creatinine 0.8 Estimated GFR (MDRD) 78 L Glucose 360 H POC Whole Bld Glucose 331 H Calcium 9.1 Phosphorus 2.8 Magnesium 1.5 L Total Bilirubin 0.9 AST 56 H ALT 90 H Alkaline Phosphatase 96 Total Protein 6.7 Albumin 3.9 Globulin 2.8 Albumin/Globulin Ratio 1.4 Serum Ketones NEGATIVE 10/19/23 21:19 WBC RBC Hgb Hct MCV MCH MCHC RDW Plt Count MPV Neut # (Auto) Lymph # (Auto) [place] # (Auto) Eos # (Auto) Baso # (Auto) Absolute Nucleated RBC Nucleated RBC % VBG pH 7.371 VBG pCO2 42.7 VBG pO2 30.2 VBG HCO3 24.2 VBG Total CO2 25.5 VBG O2 Saturation 62.8 VBG Base Excess -1.2 Sodium Potassium Chloride Carbon Dioxide Anion Gap BUN Creatinine Estimated GFR (MDRD) Glucose POC Whole Bld Glucose Calcium Phosphorus Magnesium Total Bilirubin AST ALT Alkaline Phosphatase Total Protein Albumin Globulin Albumin/Globulin Ratio Serum Ketones PD Medical Decision Making - ED course ED course: She presents with uncontrolled diabetes in the setting of longstanding diabetes on oral agents only. Workup demonstrates no sign of DKA, specifically her CBC is normal. Venous blood gas is normal. CMP notable for hyperglycemia, hypomagnesemia, and pseudohyponatremia. She has mild elevation in her liver enzymes likely from fatty liver noting that her BMI is 48. Magnesium was repleted orally and she was given some IV fluids and she is a ANATOMIC PATHOLOGIST and feels comfortable giving herself insulin so started on a low-dose of Lantus. Departure - Departure Disposition: 01 Home, Self Care Clinical Impression: Uncontrolled type 2 diabetes mellitus Qualifiers: Glycemic state: with hyperglycemia Qualified Code(s): E11.65 - Type 2 diabetes mellitus with hyperglycemia Condition: Good Record reviewed to determine appropriate education?: Yes Instructions: ED Hyperglycemia Diabetic, ED Injection Pen Using Prescriptions: Insulin Glargine [Lantus Solostar] 10 unit SUBQ QPM #3 ea Pen Needle, Diabetic [Pen Needle] 1 each MC DAILY #120 ea Comments: You are seen today for uncontrolled type 2 diabetes. We are starting Lantus which is a long-acting insulin. Tonight we gave you 1 dose of 10 units. This is on the low end of the dosing spectrum because if we have a choice between going too high and too low, we would prefer you to be too high. Tomorrow night if your blood sugars are still uncontrolled you can go up to 15 units and keep raising it until you are blood sugar is relatively controlled. Call your doctor to arrange a follow-up appointment, make the next available appointment. In the interim, return anytime if worse or if new symptoms develop. Forms: PCP List
[2023-10-19 21:56] LABS: KETONES, SERUM (ACETEST) NEGATIVE (NEGATIVE)
[2023-10-19] MEDS: INSULIN GLARGINE-YFGN 300 UNIT/3 ML PEN SUBQ STA (21:58)
[2023-10-19 22:09] LABS: ESTIMATED AVERAGE GLUCOSE 301 mg/dL (70-100); HEMOGLOBIN A1c% 12.1 % (4.27-6.07)
[2023-10-19] MEDS: MAGNESIUM OXIDE 400 MG TABLET PO STA (22:09)
[2023-10-19 22:14] VITALS: BP 145/90; O2SAT 99
== END 2023-10-19 22:12 | disposition home or self-care (01) ==
LOC: ED 20:41
DX: E11.65 Type 2 diabetes mellitus with hyperglycemia (principal); I10 Essential (primary) hypertension; I48.91 Unspecified atrial fibrillation; Z79.01 Long term (current) use of anticoagulants; Z79.4 Long term (current) use of insulin; Z79.84 Long term (current) use of oral hypoglycemic drugs
CPT/HCPCS: 36415; 80053; 82009; 82803; 83036; 83735; 84100; 85025; 99283; A9270; J1815